=== PATIENT | female | born 1970 | race Caucasian/White ===

== ENCOUNTER 2017-07-20 20:02 | Inpatient (IN) | payer BC ==
[2017-07-20] MEDS ORDERED: NORMAL SALINE 1000 ML 1,000 ML IV ONE (20:59)
[2017-07-20 21:38] LABS: HEMATOCRIT 44.7 % (36.0-47.0); HEMOGLOBIN 14.6 g/dL (12.0-15.5); MEAN CORPUSCULAR HEMOGLOBIN 26.2 pg (27.0-33.4); MEAN CORPUSCULAR HGB CONC 32.7 g/dL (32.0-36.0); MEAN CORPUSCULAR VOLUME 80 fl (80-97); PLATELET COUNT 228 10^3/uL (150-450); RED BLOOD COUNT 5.59 10^6/uL (3.72-5.28); RED CELL DISTRIBUTION WIDTH 15.6 % (11.5-14.0); WHITE BLOOD COUNT 5.9 10^3/uL (4.0-10.5)
[2017-07-20 22:00] LABS: ALANINE AMINOTRANSFERASE 40 U/L (9-52); ALBUMIN 4.5 g/dL (3.5-5.0); ALKALINE PHOSPHATASE 109 U/L (38-126); ANION GAP 14 (5-19); ASPARTATE AMINO TRANSFERASE 30 U/L (14-36); BILIRUBIN,DIRECT 0.1 mg/dL (0.0-0.4); BILIRUBIN,TOTAL 0.3 mg/dL (0.2-1.3); BLOOD UREA NITROGEN 22 mg/dL (7-20); CALCIUM 10.8 mg/dL (8.4-10.2); CARBON DIOXIDE 22 mmol/L (22-30); CHLORIDE 104 mmol/L (98-107); GLUCOSE 94 mg/dL (75-110); LIPASE 71.1 U/L (23-300); POTASSIUM 3.9 mmol/L (3.6-5.0); SODIUM 139.6 mmol/L (137-145); TOTAL PROTEIN 7.1 g/dL (6.3-8.2)
[2017-07-20 22:03] LABS: ABSOLUTE LYMPHOCYTES# (MANUAL) 0.8 10^3/uL (0.5-4.7); ABSOLUTE MONOCYTES # (MANUAL) 0.2 10^3/uL (0.1-1.4); BAND NEUTROPHILS % (MANUAL) 4 % (3-5); BASOPHILS % (MANUAL) 0 % (0-2); EOSINOPHILS % (MANUAL) 0 % (0-6); LYMPHOCYTES % (MANUAL) 13 % (13-45); METAMYELOCYTES % (MANUAL) 2 % (0); MONOCYTES % (MANUAL) 3 % (3-13); SEGMENTED NEUTROPHILS % (MAN) 78 % (42-78); TOTAL CELLS COUNTED 100
[2017-07-20 22:05] LABS: ANISOCYTOSIS SLIGHT; BURR CELLS SLIGHT; PLATELET COMMENT ADEQUATE; PLATELET GIANT PRESENT; PLATELET LARGE PRESENT; POIKILOCYTOSIS SLIGHT; SCHISTOCYTES SLIGHT; TEAR DROP CELLS SLIGHT; TOXIC GRANULATION 2+
[2017-07-20] MEDS ORDERED: HYDROMORPHONE HCL INJ/PF 2 MG/ML AMPULE IV PRN (22:34)
[2017-07-20] MEDS ORDERED: ONDANSETRON HCL INJ/PF 4 MG/2 ML SDV IV ONE (23:24)
--- NOTE | 2017-07-20 23:58 | RADIOLOGY REPORT (SQ) ---
EXAM DESCRIPTION: CT ABD/PELVIS WITH IV ONLY CLINICAL HISTORY: 46 years Female, eval sbo COMPARISON: None. TECHNIQUE: 74 mL Isovue-370 IV contrast. Coronal and sagittal reformat. This exam was performed according to our departmental dose-optimization program, which includes automated exposure control, adjustment of the mA and/or kV according to patient size and/or use of iterative reconstruction technique. FINDINGS: 3.0 cm diameter fluid filled and stacked predominantly jejunal small bowel of the left paracentral abdomen. No significant free fluid. No free air. Innumerable cysts of the liver and bilateral kidneys with kidneys measuring up to 16 cm on the right and 19 cm on the left including exophytic cysts of the left kidney measuring 5.8 cm. Cholecystectomy clips. Inferior thorax, pancreas, spleen, adrenals, pelvic organs, lymphatics, vasculature, and musculoskeleton appear otherwise unremarkable. IMPRESSION: Small bowel ileus and/or low grade obstruction.
[2017-07-21] MEDS ORDERED: MIDAZOLAM 2 MG/2 ML INJ IV ONE (00:07)
--- NOTE | 2017-07-21 00:11 | ER Document Report ---
ED General - General Chief Complaint: Abdominal Pain Stated Complaint: BOWEL ISSUE Time Seen by Provider: 07/20/17 20:58 Notes: Patient is a 46 year old female with a past medical history of polycystic kidney and liver disease with a partial liver resection 1-1/2 years ago at [facility] with a complication of a bowel obstruction after the procedure. She reports that that bowel obstruction was managed conservatively NG tube placement and she has not had any repeat obstruction since that time. Patient states that at approximately 1 PM today she began to have a generalized, cramping, aching pain to her entire abdomen worse in the epigastrium. He notes that it got progressively much worse throughout the day, preventing her from eating the able to drive from [place] back home to [place]. She is notes that since that time she has been extremely nauseated, has had no appetite but was able to eat an apple without vomiting. She has not had a bowel movement today and believes she has not passed any flatus today. Nothing improves or worsens her symptoms. She has not seen her primary care doctor regarding today's concerns. TRAVEL OUTSIDE OF THE [place] IN LAST 30 DAYS: No - Related Data Allergies/Adverse Reactions: No Known Allergies Allergy (Verified 03/16/16 10:04) Past Medical History - General Information source: Patient - Social History Smoking Status: Former Smoker Frequency of alcohol use: None Drug Abuse: None Lives with: Spouse/Significant other Family History: CAD Patient has suicidal ideation: No Patient has homicidal ideation: No - Past Medical History Cardiac Medical History: Reports: Hx Hypertension Denies: Hx Coronary Artery Disease, Hx Heart Attack Pulmonary Medical History: Denies: Hx Asthma, Hx Bronchitis, Hx COPD, Hx Pneumonia Neurological Medical History: Denies: Hx Cerebrovascular Accident, Hx Seizures Renal/ Medical History: Denies: Hx Peritoneal Dialysis Musculoskeltal Medical History: Denies Hx Arthritis Past Surgical History: Reports: Hx Tonsillectomy - Immunizations Hx Diphtheria, Pertussis, Tetanus Vaccination: No Review of Systems - Review of Systems Notes: Constitutional: Negative for fever. HENT: Negative for sore throat. Eyes: Negative for visual changes. Cardiovascular: Negative for chest pain. Respiratory: Negative for shortness of breath. Gastrointestinal: Positive for abdominal pain and nausea Genitourinary: Negative for dysuria. Musculoskeletal: Negative for back pain. Skin: Negative for rash. Neurological: Negative for headaches, weakness or numbness. 10 point ROS negative except as marked above and in HPI. Physical Exam - Vital signs Vitals: Temp Pulse Resp BP Pulse Ox 97.6 F 80 22 H 151/96 H 100 07/20/17 20:36 07/20/17 20:36 07/20/17 20:36 07/20/17 20:36 07/20/17 20:36 Interpretation: Hypertensive Notes: PHYSICAL EXAMINATION: GENERAL: Appears uncomfortable but in no acute distress. HEAD: Atraumatic, normocephalic. EYES: Pupils equal round and reactive to light, extraocular movements intact, sclera anicteric, conjunctiva are normal. ENT: nares patent, oropharynx clear without exudates. Dry mucous membranes. NECK: Normal range of motion, supple without lymphadenopathy LUNGS: Breath sounds clear to auscultation bilaterally and equal. No wheezes rales or rhonchi. HEART: Regular rate and rhythm without murmurs ABDOMEN: Soft, diffuse tenderness to palpation without rebound or guarding. No bowel sounds are present. Tympany on percussion. EXTREMITIES: Normal range of motion, no pitting or edema. No cyanosis. NEUROLOGICAL: No focal neurological deficits. Moves all extremities spontaneously and on command. PSYCH: Normal mood, normal affect. SKIN: Warm, Dry, normal turgor, no rashes or lesions noted. Course - Re-evaluation Re-evalutation: 07/21/17 00:09 Patient presents with signs and symptoms most consistent with an acute small bowel obstruction. She has no bowel sounds on examination, tympany on exam and moderate distention of her abdomen. She also reports that the symptoms are identical to when she has had a small bowel obstruction in the past. CT abdomen pelvis does show a likely small bowel obstruction versus ileus. Labs otherwise unremarkable. NG tube will be placed with midazolam. I have contacted the surgeon television and radio repairer and he has agreed to hospitalize the patient. - Vital Signs Vital signs: Temp Pulse Resp BP Pulse Ox 97.4 F 63 16 163/103 H 100 07/21/17 01:37 07/21/17 01:37 07/21/17 01:37 07/21/17 01:37 07/21/17 01:37 - Laboratory Result Diagrams: 07/20/17 21:15 07/20/17 21:15 Laboratory results interpreted by me: 07/20/17 07/20/17 21:15 21:15 RBC 5.59 H MCH 26.2 L RDW 15.6 H Metamyelocytes % 2 H BUN 22 H Est GFR (Non-Af Amer) 59 L Calcium 10.8 H - Diagnostic Test Radiology reviewed: Reports reviewed Discharge - Discharge Clinical Impression: Small bowel obstruction, Generalized abdominal pain Condition: Fair Disposition: ADMITTED INPATIENT Admitting Provider: Surgicalist - [facility] Unit Admitted: Surgical Floor
--- NOTE | 2017-07-21 00:40 | PDOC H&P ---
History of Present Illness Admission Date/PCP: RICHMOND MORRIS MD Patient complains of: Abdominal pain History of Present Illness: BEATRICE OSPINA is a 46 year old female presented with acute onset of epigastric crampy severe abdominal pain along with nausea that began earlier today. Since she has been in the emergency department she has had improvement of her symptoms currently she only has some mild abdominal discomfort. Her nausea has subsided. She has had no emesis today. She has not had a bowel movement today she had a normal bowel movement yesterday. Uncertain whether she has been passing any gas. She does feel distended. Patient has a history of polycystic kidney and liver disease. She has had a liver cysts resection via open technique couple of years ago. She apparently had a bowel obstruction after this procedure that took several days to resolve with conservative measures. Patient states that her current symptoms are similar to that time although she had emesis at that time. She has had no other abdominal surgeries. Past Medical History Cardiac Medical History: Reports: Hypertension Denies: Coronary Artery Disease, Myocardial Infarction Pulmonary Medical History: Denies: Asthma, Bronchitis, Chronic Obstructive Pulmonary Disease (COPD), Pneumonia Neurological Medical History: Denies: Seizures GI Medical History: Reports: Other - Polycystic liver and kidney disease. Musculoskeltal Medical History: Denies: Arthritis Hematology: Denies: Anemia Past Surgical History Past Surgical History: Reports: Tonsillectomy, Other - Resection of the liver cysts Social History Smoking Status: Former Smoker Frequency of Alcohol Use: Occasional Hx Recreational Drug Use: No Hx Prescription Drug Abuse: No Family History Family History: CAD Parental Family History Reviewed: No Children Family History Reviewed: No Sibling(s) Family History Reviewed.: No Medication/Allergy Home Medications: Dextroamphetamine/Amphetamine [Adderall 10 mg Tablet] 10 mg PO DAILY PRN Metoprolol Succinate [Toprol Xl 50 mg Tab.sr] 50 mg PO DAILY 03/08/14 Fingolimod HCl [Gilenya] 0.5 mg PO DAILY 03/16/16 Venlafaxine HCl ER [Effexor Xr 75 mg Cap.sr] 75 mg PO DAILY 03/16/16 Allergies/Adverse Reactions: No Known Allergies Allergy (Verified 03/16/16 10:04) Physical Exam Vital Signs: Temp Pulse Resp BP Pulse Ox 97.6 F 80 22 H 151/96 H 100 07/20/17 20:36 07/20/17 20:36 07/20/17 20:36 07/20/17 20:36 07/20/17 20:36 General appearance: PRESENT: no acute distress, cooperative Eye exam: PRESENT: conjunctiva pink Neck exam: PRESENT: other - Supple with no masses Respiratory exam: PRESENT: clear to auscultation marcel Cardiovascular exam: PRESENT: RRR GI/Abdominal exam: PRESENT: other - Soft, mildly distended, very mild epigastric abdominal tenderness with no peritoneal signs. Positive bowel sounds. Extremities exam: PRESENT: other - No swelling Neurological exam: PRESENT: alert, awake Psychiatric exam: PRESENT: appropriate affect Skin exam: PRESENT: warm Results Laboratory Results: 07/20/17 21:15 07/20/17 21:15 07/20/17 07/20/17 21:15 21:15 WBC 5.9 RBC 5.59 H Hgb 14.6 Hct 44.7 MCV 80 MCH 26.2 L MCHC 32.7 RDW 15.6 H Plt Count 228 Seg Neutrophils % Not Reportable Lymphocytes % Not Reportable Monocytes % Not Reportable Eosinophils % Not Reportable Basophils % Not Reportable Absolute Neutrophils Not Reportable Absolute Lymphocytes Not Reportable Absolute Monocytes Not Reportable Absolute Eosinophils Not Reportable Absolute Basophils Not Reportable Sodium 139.6 Potassium 3.9 Chloride 104 Carbon Dioxide 22 Anion Gap 14 BUN 22 H Creatinine 1.00 Est GFR ( Amer) > 60 Est GFR (Non-Af Amer) 59 L Glucose 94 Calcium 10.8 H Total Bilirubin 0.3 AST 30 ALT 40 Alkaline Phosphatase 109 Total Protein 7.1 Albumin 4.5 Lipase 71.1 Impressions: Abdomen/Pelvis CT 07/20/17 20:58 IMPRESSION: Small bowel ileus and/or low grade obstruction. Assessment & Plan - Diagnosis (1) Small bowel obstruction Is this a current diagnosis for this admission?: Yes Plan: Possible partial small bowel obstruction. Her abdomen is very soft with minimal tenderness and her symptoms have improved since arrival to the emergency department. Therefore will manage her conservatively. Will admit, IV fluids, hold off on NG tube for now in light of no emesis and no severe gastric distention on CT. Encourage activity. Repeat abdominal films tomorrow..
[2017-07-21] MEDS: HYDROMORPHONE HCL INJ/PF 2 MG/ML AMPULE IV PRN ×10 (01:11→23:40)
[2017-07-21 01:43] LABS: APPEARANCE,URINE SLIGHTLY-CLOUDY; BILIRUBIN,URINE NEGATIVE (NEGATIVE); COLOR,URINE STRAW; GLUCOSE, URINE NEGATIVE (NEGATIVE); KETONES,URINE NEGATIVE (NEGATIVE); LEUKOCYTE ESTERASE,URINE NEGATIVE (NEGATIVE); NITRITE,URINE NEGATIVE (NEGATIVE); PROTEIN,URINE NEGATIVE (NEGATIVE); URINE SPECIFIC GRAVITY 1.006; UROBILINOGEN,URINE NEGATIVE mg/dL (<2.0)
[2017-07-21] MEDS: NORMAL SALINE 1000 ML 1,000 ML IV PRN ×2 (02:03→14:41)
[2017-07-21] MEDS ORDERED: METOPROLOL SUCCINATE 50 MG TAB.SR.24H PO ONE (04:30)
[2017-07-21] MEDS: ONDANSETRON 4 MG TAB.RAPDIS PO PRN ×5 (04:59→23:41)
[2017-07-21] MEDS ORDERED: ENALAPRILAT DIHYDRATE INJ/PF 1.25 MG/1 ML SDV IV ONE (07:52)
[2017-07-21] MEDS ORDERED: ENALAPRILAT DIHYDRATE INJ/PF 1.25 MG/1 ML SDV IV PRN (08:28)
--- NOTE | 2017-07-21 08:50 | PDOC PROGRESS REPORT ---
Subjective Progress Note for:: 07/21/17 Subjective:: Complaint of worsening pain. She was nauseated and has had 2 episodes of emesis. Reason For Visit: PARTIAL SMALL BOWEL OBSTRUCTION Physical Exam Vital Signs: Temp Pulse Resp BP Pulse Ox 97.5 F 60 15 185/97 H 100 07/21/17 03:48 07/21/17 03:48 07/21/17 03:48 07/21/17 03:48 07/21/17 03:48 Intake & Output 07/20/17 07/21/17 07/22/17 06:59 06:59 06:59 Weight 71.9 kg General appearance: PRESENT: other - Awake, alert, oriented. She appears uncomfortable Respiratory exam: PRESENT: other - Clear bilaterally. No wheezing Cardiovascular exam: PRESENT: other - Regular rate. GI/Abdominal exam: PRESENT: other - Soft, mild diffuse tenderness without guarding or peritoneal signs. Bowel sounds diminished. No high-pitched bowel sounds. Results Impressions: Abdomen/Pelvis CT 07/20/17 20:58 IMPRESSION: Small bowel ileus and/or low grade obstruction. Assessment & Plan - Diagnosis (1) Small bowel obstruction Is this a current diagnosis for this admission?: Yes - Plan Summary Plan Summary: 46-year-old female with polycystic disease admitted with partial small bowel obstruction. CT scan does not show a clear transition point. There is no evidence of internal hernia on the exam. I have asked the nurses to place an NG tube. At the time of placement of the NG tube she had emesis of an additional 200 cc of bilious fluid. I will order repeat labs for this morning. Continue NG tube decompression. Reassess later this morning.
--- NOTE | 2017-07-21 10:05 | RADIOLOGY REPORT (SQ) ---
EXAM DESCRIPTION: ABDOMEN 2 VIEWS COMPLETED DATE/TIME: 07/21/2017 9:52 am REASON FOR STUDY: psbo/ NG Placement COMPARISON: None. NUMBER OF VIEWS: Two views. TECHNIQUE: Supine and erect/decubitus radiographic images of the abdomen acquired. LIMITATIONS: None. FINDINGS: FREE AIR: None. No abnormal gas collections. LUNG BASES: Clear. BOWEL GAS PATTERN: Gas fluid levels within nondilated loops of small bowel in the left lower quadrant . CALCIFICATIONS: No suspicious calcifications. SOFT TISSUES: No gross mass or suggestion of organomegaly. HARDWARE: Clips right upper quadrant. BONES: No acute fracture. No worrisome bone lesions. OTHER: NG tube in the stomach. Residual contrast in the urinary tract. IMPRESSION: Mild ileus status post NG tube placement. TECHNICAL DOCUMENTATION: JOB ID: [id number] [employer]- All Rights Reserved
[2017-07-21 10:52] LABS: HEMOGLOBIN 16.1 g/dL (12.0-15.5); MEAN CORPUSCULAR HEMOGLOBIN 26.4 pg (27.0-33.4); MEAN CORPUSCULAR HGB CONC 32.8 g/dL (32.0-36.0); MEAN CORPUSCULAR VOLUME 80 fl (80-97); PLATELET COUNT 206 10^3/uL (150-450); RED CELL DISTRIBUTION WIDTH 16.5 % (11.5-14.0)
[2017-07-21 11:11] LABS: ALANINE AMINOTRANSFERASE 43 U/L (9-52); ALBUMIN 4.2 g/dL (3.5-5.0); ALKALINE PHOSPHATASE 105 U/L (38-126); ANION GAP 12 (5-19); ASPARTATE AMINO TRANSFERASE 36 U/L (14-36); BILIRUBIN,DIRECT 0.4 mg/dL (0.0-0.4); BILIRUBIN,TOTAL 0.5 mg/dL (0.2-1.3); BLOOD UREA NITROGEN 22 mg/dL (7-20); CALCIUM 10.4 mg/dL (8.4-10.2); CARBON DIOXIDE 19 mmol/L (22-30); CHLORIDE 110 mmol/L (98-107); GLUCOSE 145 mg/dL (75-110); POTASSIUM 4.6 mmol/L (3.6-5.0); SODIUM 141.1 mmol/L (137-145); TOTAL PROTEIN 7.4 g/dL (6.3-8.2)
[2017-07-21 11:16] LABS: ABSOLUTE MONOCYTES # (MANUAL) 0.3 10^3/uL (0.1-1.4); ABSOLUTE NEUTROPHILS# (MANUAL) 9.7 10^3/uL (1.7-8.2); ANISOCYTOSIS 1+; BASOPHILS % (MANUAL) 0 % (0-2); EOSINOPHILS % (MANUAL) 0 % (0-6); LYMPHOCYTES % (MANUAL) 0 % (13-45); MONOCYTES % (MANUAL) 3 % (3-13); PLATELET COMMENT ADEQUATE; POLYCHROMASIA SLIGHT; SEGMENTED NEUTROPHILS % (MAN) 97 % (42-78); TOTAL CELLS COUNTED 100; TOXIC GRANULATION SLIGHT
[2017-07-21] MEDS ORDERED: NORMAL SALINE 500 ML IV ONE ×2 (13:00→18:45)
[2017-07-21 15:30] LABS: HEMATOCRIT 51.4 % (36.0-47.0); HEMOGLOBIN 16.6 g/dL (12.0-15.5); MEAN CORPUSCULAR HEMOGLOBIN 26.4 pg (27.0-33.4); MEAN CORPUSCULAR HGB CONC 32.3 g/dL (32.0-36.0); MEAN CORPUSCULAR VOLUME 82 fl (80-97); PLATELET COUNT 217 10^3/uL (150-450); RED CELL DISTRIBUTION WIDTH 16.1 % (11.5-14.0); WHITE BLOOD COUNT 10.2 10^3/uL (4.0-10.5)
[2017-07-21 15:47] LABS: ALANINE AMINOTRANSFERASE 38 U/L (9-52); ALBUMIN 4.1 g/dL (3.5-5.0); ALKALINE PHOSPHATASE 105 U/L (38-126); ANION GAP 12 (5-19); ASPARTATE AMINO TRANSFERASE 28 U/L (14-36); BILIRUBIN,TOTAL 0.3 mg/dL (0.2-1.3); BLOOD UREA NITROGEN 22 mg/dL (7-20); CALCIUM 9.7 mg/dL (8.4-10.2); CARBON DIOXIDE 21 mmol/L (22-30); CHLORIDE 110 mmol/L (98-107); GLUCOSE 121 mg/dL (75-110); POTASSIUM 4.5 mmol/L (3.6-5.0); TOTAL PROTEIN 6.6 g/dL (6.3-8.2)
[2017-07-21 15:50] LABS: ABSOLUTE LYMPHOCYTES# (MANUAL) 0.3 10^3/uL (0.5-4.7); ABSOLUTE MONOCYTES # (MANUAL) 0.6 10^3/uL (0.1-1.4); ABSOLUTE NEUTROPHILS# (MANUAL) 9.3 10^3/uL (1.7-8.2); BASOPHILS % (MANUAL) 0 % (0-2); EOSINOPHILS % (MANUAL) 0 % (0-6); LYMPHOCYTES % (MANUAL) 2 % (13-45); MONOCYTES % (MANUAL) 6 % (3-13); SEGMENTED NEUTROPHILS % (MAN) 91 % (42-78); TOTAL CELLS COUNTED 100
[2017-07-21 15:51] LABS: ANISOCYTOSIS 1+; OVALOCYTES SLIGHT; POIKILOCYTOSIS SLIGHT
[2017-07-21 15:52] LABS: PLATELET COMMENT ADEQUATE
[2017-07-21] MEDS: METOPROLOL SUCCINATE 50 MG TAB.SR.24H PO SCH (17:35)
[2017-07-21] MEDS ORDERED: (PENDING PHARMACY ID) (Fingolimod Hcl [Gilenya] 0.5 MG) PO SCH (18:00)
[2017-07-22] MEDS: ONDANSETRON 4 MG TAB.RAPDIS PO PRN ×3 (03:06→11:03)
[2017-07-22] MEDS: HYDROMORPHONE HCL INJ/PF 2 MG/ML AMPULE IV PRN ×5 (03:06→22:42)
[2017-07-22 07:41] LABS: HEMATOCRIT 49.5 % (36.0-47.0); HEMOGLOBIN 15.9 g/dL (12.0-15.5); MEAN CORPUSCULAR HEMOGLOBIN 26.2 pg (27.0-33.4); MEAN CORPUSCULAR HGB CONC 32.1 g/dL (32.0-36.0); MEAN CORPUSCULAR VOLUME 82 fl (80-97); PLATELET COUNT 219 10^3/uL (150-450); RED BLOOD COUNT 6.07 10^6/uL (3.72-5.28); RED CELL DISTRIBUTION WIDTH 16.4 % (11.5-14.0); WHITE BLOOD COUNT 7.6 10^3/uL (4.0-10.5)
[2017-07-22 07:56] LABS: ANION GAP 8 (5-19); BLOOD UREA NITROGEN 26 mg/dL (7-20); CALCIUM 9.2 mg/dL (8.4-10.2); CARBON DIOXIDE 20 mmol/L (22-30); CHLORIDE 115 mmol/L (98-107); GLUCOSE 102 mg/dL (75-110); POTASSIUM 4.7 mmol/L (3.6-5.0); SODIUM 142.9 mmol/L (137-145)
[2017-07-22] MEDS ORDERED: VENLAFAXINE HCL 75 MG CAP.SR.24H PO SCH (10:00)
--- NOTE | 2017-07-22 12:02 | PDOC PROGRESS REPORT ---
Subjective Progress Note for:: 07/22/17 Subjective:: No c/o, emesis this AM after oral contrast Reason For Visit: PARTIAL SMALL BOWEL OBSTRUCTION Physical Exam Vital Signs: Temp Pulse Resp BP Pulse Ox 97.9 F 77 17 140/91 H 99 07/22/17 08:11 07/22/17 08:11 07/22/17 08:11 07/22/17 08:11 07/22/17 08:11 Intake & Output 07/21/17 07/22/17 07/23/17 06:59 06:59 06:59 Intake Total 2121 Output Total 700 Balance 1421 Weight 71.9 kg General appearance: PRESENT: no acute distress Respiratory exam: PRESENT: clear to auscultation marcel Cardiovascular exam: PRESENT: RRR GI/Abdominal exam: PRESENT: normal bowel sounds, soft Results Laboratory Results: 07/22/17 06:43 07/22/17 06:43 07/21/17 07/21/17 07/21/17 15:15 15:15 15:15 WBC 10.2 RBC 6.30 H Hgb 16.6 H Hct 51.4 H MCV 82 MCH 26.4 L MCHC 32.3 RDW 16.1 H Plt Count 217 Seg Neutrophils % Not Reportable Lymphocytes % Not Reportable Monocytes % Not Reportable Eosinophils % Not Reportable Basophils % Not Reportable Absolute Neutrophils Not Reportable Absolute Lymphocytes Not Reportable Absolute Monocytes Not Reportable Absolute Eosinophils Not Reportable Absolute Basophils Not Reportable Sodium 143.0 Potassium 4.5 Chloride 110 H Carbon Dioxide 21 L Anion Gap 12 BUN 22 H Creatinine 0.85 Est GFR ( Amer) > 60 Est GFR (Non-Af Amer) > 60 Glucose 121 H Lactic Acid 0.9 Calcium 9.7 Total Bilirubin 0.3 AST 28 ALT 38 Alkaline Phosphatase 105 Total Protein 6.6 Albumin 4.1 07/22/17 07/22/17 06:43 06:43 WBC 7.6 RBC 6.07 H Hgb 15.9 H Hct 49.5 H MCV 82 MCH 26.2 L MCHC 32.1 RDW 16.4 H Plt Count 219 Seg Neutrophils % Lymphocytes % Monocytes % Eosinophils % Basophils % Absolute Neutrophils Absolute Lymphocytes Absolute Monocytes Absolute Eosinophils Absolute Basophils Sodium 142.9 Potassium 4.7 Chloride 115 H Carbon Dioxide 20 L Anion Gap 8 BUN 26 H Creatinine 0.87 Est GFR ( Amer) > 60 Est GFR (Non-Af Amer) > 60 Glucose 102 Lactic Acid Calcium 9.2 Total Bilirubin AST ALT Alkaline Phosphatase Total Protein Albumin Impressions: Abdomen X-Ray 07/21/17 07:00 IMPRESSION: Mild ileus status post NG tube placement. Assessment & Plan - Diagnosis (1) Small bowel obstruction Is this a current diagnosis for this admission?: Yes - Plan Summary Plan Summary: A/ Small bowel obstruction conformed on CT scan A/P today with oral and IV contrast Bladder filled with urine Gas in colon: above picture is not consistent with complete SBO About 700 mL NGT aspirate and emesis during past 24 hrs PE shows soft abdomen with normal BS Blood work WNL P/ Patient wishes to hold off surgery and possibly to be transferred to [place] where original abdominal cyst debulking surgery was done NO urgency to operate on this patient as abdomen is soft and air is in the colon at this time and blood work is WNL Options given: conservative management vs. operative intervention vs. transfer to [place] Insert Walden Dulcolax suppository to stimulate the intestine
--- NOTE | 2017-07-22 12:04 | RADIOLOGY REPORT (SQ) ---
EXAM DESCRIPTION: CT ABD/PELVIS WITH IV ORAL COMPLETED DATE/TIME: 07/22/2017 10:34 am REASON FOR STUDY: obstruction. oral contrast 3 hrs prior to scan COMPARISON: None. TECHNIQUE: CT scan of the abdomen and pelvis performed using helical scanning technique with dynamic intravenous contrast injection. No oral contrast. Images reviewed with lung, soft tissue, and bone windows. Reconstructed coronal and sagittal MPR images reviewed. Delayed images for evaluation of the urinary system also acquired. All images stored on PACS. All CT scanners at this facility use dose modulation, iterative reconstruction, and/or weight based d osing when appropriate to reduce radiation dose to as low as reasonably achievable (ALARA). [facility]: Dose Right [facility]: CareDose [facility]: Dose Right [facility]: Teradose 4D [facility]: Centrix CONTRAST TYPE AND DOSE: contrast/concentration: Isovue 370.00 mg/ml; Total Contrast Delivered: 78.0 ml; Total Saline Delivered: 67.0 ml RENAL FUNCTION: Creatinine 0.85 RADIATION DOSE: CT Rad equipment meets quality standard of care and radiation dose reduction techniq ues were employed. CTDIvol: 6.8 - 9.9 mGy. DLP: 906 mGy-cm.. LIMITATIONS: None. FINDINGS: LOWER CHEST: There is bibasilar atelectasis. Small pleural effusions. LIVER: Prominent right lobe of the liver measuring 24.5 cm in length. Multiple hepatic cyst compati ble with changes secondary to adult ull polycystic kidney disease. Surgical mali are noted along the right liver the liver consistent with postsurgical change from cyst resection. SPLEEN: No abnormality seen. PANCREAS: No abnormality seen. GALLBLADDER: Not seen. Surgical clips adjacent to common bile duct suggesting postcholecystectomy ch jenna. ADRENAL GLANDS: No significant abnormality. RIGHT KIDNEY AND URETER: Enlarged multi cystic right kidney consistent with polycystic kidney disease . Few calcifications are noted in the lower pole of the right kidney. LEFT KIDNEY AND URETER: Enlarged left kidney containing multiple cysts consistent with adult polycyst ic kidney disease. Calcifications are noted in the upper pole of the left kidney. AORTA AND VESSELS: No evidence of abdominal aneurysm. Minimal atherosclerotic change infrarenal abdo sheyla aorta. Atherosclerotic change iliac arteries. RETROPERITONEUM: No retroperitoneal adenopathy. BOWEL AND PERITONEAL CAVITY: There is evidence of a decompressed colon. Proximal to the cecum there are angulated and narrowed loops of small bowel noted with dilatation of bowel proximal to this level . The possibility of a distal small bowel obstruction in the right lower quadrant must be considered (image number 56/101 series 3 axial scans) and (image number 29/69coronal scans ) . NG tube noted p assing from esophagus into stomach. Minimal contrast noted within stomach. APPENDIX: Nonvisualized. . PELVIS: There are changes consistent with tampon within the vaginal canal. No abnormality of the marcio maryan. ABDOMINAL WALL: No masses. No hernias. BONES: No significant or acute findings. OTHER: Changes consistent with abdominal and pelvic ascites. IMPRESSION: 1. Findings consistent with distal small bowel obstruction. 2. Adult polycystic kidne y disease. COMMENT: Report was given to Dr. Peralta at 1140 hours 07/22/2017. TECHNICAL DOCUMENTATION: JOB ID: [id number] Quality ID # [id number]: Final reports with documentation of one or more dose reduction techniques (e.g., Au tomated exposure control, adjustment of the mA and/or kV according to patient size, use of iterative reconstruction technique) 2010 [employer]- All Rights Reserved
[2017-07-22] MEDS: BISACODYL 10 MG SUPP.RECT PR SCH ×2 (12:42→16:40)
[2017-07-22] MEDS: NORMAL SALINE 1000 ML 1,000 ML IV PRN (15:24)
[2017-07-22] MEDS: ONDANSETRON HCL INJ/PF 4 MG/2 ML SDV IV PRN ×2 (17:49→22:42)
[2017-07-22] MEDS: METOPROLOL SUCCINATE 50 MG TAB.SR.24H PO SCH (18:16)
[2017-07-23] MEDS: HYDROMORPHONE HCL INJ/PF 2 MG/ML AMPULE IV PRN ×2 (02:21→05:17)
[2017-07-23] MEDS ORDERED: ENALAPRILAT DIHYDRATE INJ/PF 1.25 MG/1 ML SDV IV ONE (02:29)
[2017-07-23] MEDS: ONDANSETRON HCL INJ/PF 4 MG/2 ML SDV IV PRN (05:27)
[2017-07-23 06:43] LABS: HEMATOCRIT 45.2 % (36.0-47.0); HEMOGLOBIN 14.6 g/dL (12.0-15.5); MEAN CORPUSCULAR HEMOGLOBIN 26.3 pg (27.0-33.4); MEAN CORPUSCULAR HGB CONC 32.3 g/dL (32.0-36.0); MEAN CORPUSCULAR VOLUME 81 fl (80-97); PLATELET COUNT 181 10^3/uL (150-450); RED BLOOD COUNT 5.55 10^6/uL (3.72-5.28); RED CELL DISTRIBUTION WIDTH 16.3 % (11.5-14.0); WHITE BLOOD COUNT 6.5 10^3/uL (4.0-10.5)
[2017-07-23 07:02] LABS: ANION GAP 7 (5-19); BLOOD UREA NITROGEN 23 mg/dL (7-20); CALCIUM 8.9 mg/dL (8.4-10.2); CARBON DIOXIDE 24 mmol/L (22-30); CHLORIDE 115 mmol/L (98-107); GLUCOSE 93 mg/dL (75-110); POTASSIUM 4.2 mmol/L (3.6-5.0); SODIUM 145.6 mmol/L (137-145)
[2017-07-23 07:10] LABS: ABSOLUTE LYMPHOCYTES# (MANUAL) 0.3 10^3/uL (0.5-4.7); ABSOLUTE MONOCYTES # (MANUAL) 0.8 10^3/uL (0.1-1.4); ABSOLUTE NEUTROPHILS# (MANUAL) 5.5 10^3/uL (1.7-8.2); BAND NEUTROPHILS % (MANUAL) 2 % (3-5); BASOPHILS % (MANUAL) 0 % (0-2); EOSINOPHILS % (MANUAL) 0 % (0-6); LYMPHOCYTES % (MANUAL) 3 % (13-45); MONOCYTES % (MANUAL) 12 % (3-13); SEGMENTED NEUTROPHILS % (MAN) 82 % (42-78); TOTAL CELLS COUNTED 100
[2017-07-23 07:11] LABS: PLATELET COMMENT ADEQUATE
[2017-07-23 07:14] LABS: RBC MORPHOLOGY COMMENT NORMO-CYTIC/CHROMIC
--- NOTE | 2017-07-23 09:01 | RADIOLOGY REPORT (SQ) ---
EXAM DESCRIPTION: ABDOMEN 2 VIEWS COMPLETED DATE/TIME: 07/23/2017 8:33 am REASON FOR STUDY: SBO follow up COMPARISON: 07/21/2017 NUMBER OF VIEWS: Two views. TECHNIQUE: Supine and erect/decubitus radiographic images of the abdomen acquired. LIMITATIONS: None. FINDINGS: FREE AIR: None. No abnormal gas collections. LUNG BASES: Clear. BOWEL GAS PATTERN: Gas fluid levels within small loop of mildly dilated small bowel in the lower abdo men near the midline. Relative paucity of bowel gas consistent with fluid filled bowel. There is ga s in the descending colon. CALCIFICATIONS: No suspicious calcifications. SOFT TISSUES: No gross mass or suggestion of organomegaly. HARDWARE: Clips right upper quadrant. Walden catheter. BONES: No acute fracture. No worrisome bone lesions. OTHER: Unchanged position of NG tube. IMPRESSION: No progression. Less small bowel distention. TECHNICAL DOCUMENTATION: JOB ID: [id number] [employer]- All Rights Reserved
[2017-07-23] MEDS ORDERED: 1/2 NORMAL SALINE 1,000 ML IV PRN (12:52)
[2017-07-23] MEDS ORDERED: DEXTROSE 40% GEL 15 GM TUBE PO PRN ×2 (12:54)
[2017-07-23] MEDS ORDERED: GLUCAGON,HUMAN RECOMB 1 MG INJ SUBCUT PRN (12:54)
[2017-07-23] MEDS ORDERED: DEXTROSE 50%-WATER 25 GM/50 ML DISP.SYRIN IV PRN ×2 (12:54)
--- NOTE | 2017-07-23 13:14 | PDOC PROGRESS REPORT ---
Subjective Progress Note for:: 07/23/17 Subjective:: Patient comfortable, denies any stools or flatus; feels thirsty Reason For Visit: SMALL BOWEL OBSTRUCTION Physical Exam Vital Signs: Temp Pulse Resp BP Pulse Ox 98.5 F 82 18 152/85 H 99 07/23/17 07:32 07/23/17 07:32 07/23/17 07:32 07/23/17 07:32 07/23/17 07:32 Intake & Output 07/22/17 07/23/17 07/24/17 06:59 06:59 06:59 Output Total 650 Balance -650 Weight 74.3 kg General appearance: PRESENT: mild distress Respiratory exam: PRESENT: clear to auscultation marcel Cardiovascular exam: PRESENT: RRR GI/Abdominal exam: PRESENT: hypoactive bowel sounds, soft Results Laboratory Results: 07/23/17 06:26 07/23/17 06:26 07/23/17 07/23/17 06:26 06:26 WBC 6.5 RBC 5.55 H Hgb 14.6 Hct 45.2 MCV 81 MCH 26.3 L MCHC 32.3 RDW 16.3 H Plt Count 181 Seg Neutrophils % Not Reportable Lymphocytes % Not Reportable Monocytes % Not Reportable Eosinophils % Not Reportable Basophils % Not Reportable Absolute Neutrophils Not Reportable Absolute Lymphocytes Not Reportable Absolute Monocytes Not Reportable Absolute Eosinophils Not Reportable Absolute Basophils Not Reportable Sodium 145.6 H Potassium 4.2 Chloride 115 H Carbon Dioxide 24 Anion Gap 7 BUN 23 H Creatinine 0.77 Est GFR ( Amer) > 60 Est GFR (Non-Af Amer) > 60 Glucose 93 Calcium 8.9 Impressions: Abdomen/Pelvis CT 07/22/17 08:00 IMPRESSION: 1. Findings consistent with distal small bowel obstruction. 2. Adult polycystic kidney disease. Abdomen X-Ray 07/23/17 12:04 IMPRESSION: No progression. Less small bowel distention. Assessment & Plan - Diagnosis (1) Small bowel obstruction Is this a current diagnosis for this admission?: Yes - Plan Summary Plan Summary: A/ HD#4 with complete small bowel obstruction Still moderately elevated NGT output (400 mL past shift) Moderate UO Patient thirsty; no flatus since admission BMP shows elevated Na and Cl as per maintenance IVF (NS) Abdomen soft Abdominal btructiive series shows a gasless colon with distended loops of small bowel consistent with complete mechanical small bowel obstruciton P/ O.5% NS IV 1L bolus Change IVF maintenance to D5 0.5% NS with 20 mEq KCl at 150 mL/hr The gasless colon and the lack of flatus after almost 5 days, indicate a complete SBO requiring an urgent operation sooner rather than later. This operation should be done to avoid the possibility of either a spontaneous small bowel perforation or a small bowel necrosis with secondary intraabdominal catastrophy. This possibility has been related to the patient, she voices understanding of the risks; however, she declines the offer to undergo surgery at this time.
[2017-07-23] MEDS: POTASSI CL 20 MEQ/D5-1/2NS 1L 1,000 ML IV PRN (15:33)
[2017-07-23] MEDS: METOPROLOL SUCCINATE 50 MG TAB.SR.24H PO SCH (17:01)
[2017-07-23] MEDS ORDERED: MAGNESIUM CITRATE 296 ML BOTTLE PO ONE (17:30)
[2017-07-24] MEDS: POTASSI CL 20 MEQ/D5-1/2NS 1L 1,000 ML IV PRN ×2 (01:05→18:07)
[2017-07-24] MEDS: HYDROMORPHONE HCL INJ/PF 2 MG/ML AMPULE IV PRN (06:31)
[2017-07-24] MEDS: MAG HYDROX/AL HYDROX/SIMETH SUSP 30 ML UDCUP PO PRN ×2 (07:25→18:17)
[2017-07-24 07:29] LABS: ABSOLUTE LYMPHOCYTES (AUTO) 0.3 10^3/uL (0.5-4.7); ABSOLUTE MONOCYTES (AUTO) 0.6 10^3/uL (0.1-1.4); ABSOLUTE NEUT (AUTO) 4.6 10^3/uL (1.7-8.2); BASOPHILS % (AUTO) 0.1 % (0-2); HEMATOCRIT 37.1 % (36.0-47.0); LYMPHOCYTES % (AUTO) 5.1 % (13-45); MEAN CORPUSCULAR HEMOGLOBIN 26.3 pg (27.0-33.4); MEAN CORPUSCULAR HGB CONC 32.7 g/dL (32.0-36.0); MEAN CORPUSCULAR VOLUME 80 fl (80-97); PLATELET COUNT 170 10^3/uL (150-450); RED BLOOD COUNT 4.61 10^6/uL (3.72-5.28); SEGMENTED NEUTROPHILS % (AUTO) 83.8 % (42-78); TOTAL CELLS COUNTED % (AUTO) 100 %; WHITE BLOOD COUNT 5.5 10^3/uL (4.0-10.5)
[2017-07-24] MEDS ORDERED: ONDANSETRON 4 MG TAB.RAPDIS PO PRN (07:30)
[2017-07-24 07:47] LABS: BLOOD UREA NITROGEN 15 mg/dL (7-20); CALCIUM 8.7 mg/dL (8.4-10.2); CARBON DIOXIDE 26 mmol/L (22-30); CHLORIDE 109 mmol/L (98-107); GLUCOSE 113 mg/dL (75-110); POTASSIUM 3.7 mmol/L (3.6-5.0)
[2017-07-24 07:57] LABS: ANION GAP 5 (5-19); SODIUM 139.8 mmol/L (137-145)
[2017-07-24 08:04] LABS: HEMOGLOBIN 12.1 g/dL (12.0-15.5)
--- NOTE | 2017-07-24 09:19 | RADIOLOGY REPORT (SQ) ---
EXAM DESCRIPTION: ABDOMEN 2 VIEWS COMPLETED DATE/TIME: 07/24/2017 8:52 am REASON FOR STUDY: SBO follow up COMPARISON: 07/23/2017 NUMBER OF VIEWS: Two views. TECHNIQUE: Supine and erect/decubitus radiographic images of the abdomen acquired. LIMITATIONS: None. FINDINGS: FREE AIR: None. No abnormal gas collections. LUNG BASES: Clear. BOWEL GAS PATTERN: Multiple mildly dilated loops of small bowel with associated air-fluid levels. So me gas is seen within the colon which appears nondistended. Findings are consistent with worsening p artial bowel obstruction. CALCIFICATIONS: No suspicious calcifications. SOFT TISSUES: No gross mass or suggestion of organomegaly. HARDWARE: Multiple surgical clips in the upper abdomen. BONES: No acute fracture. No worrisome bone lesions. OTHER: No other significant finding. IMPRESSION: Worsening in the abdominal gas pattern with findings consistent with partial small bowel obstruction. TECHNICAL DOCUMENTATION: JOB ID: [id number] [employer]- All Rights Reserved
[2017-07-24] MEDS ORDERED: ACETAMINOPHEN 325 MG TABLET PO PRN (10:08)
--- NOTE | 2017-07-24 11:02 | PDOC PROGRESS REPORT ---
Subjective Progress Note for:: 07/24/17 Reason For Visit: SMALL BOWEL OBSTRUCTION Patient is feeling better. Tolerating a full liquid diet, having flatus and liquid stool; no p.o. pain medication; desires Tylenol for headache. Physical Exam Vital Signs: Temp Pulse Resp BP Pulse Ox 97.9 F 69 18 115/76 100 07/24/17 08:10 07/24/17 08:10 07/24/17 08:10 07/24/17 08:10 07/24/17 08:10 Intake & Output 07/23/17 07/24/17 07/25/17 06:59 06:59 06:59 Intake Total 1800 1200 Output Total 3750 Balance -1950 1200 Weight 74.3 kg 76.8 kg General appearance: PRESENT: no acute distress GI/Abdominal exam: PRESENT: other - Well-healed chevron incision consistent previous surgery; abdomen is completely benign. Results Laboratory Results: 07/24/17 06:55 07/24/17 06:55 07/24/17 07/24/17 06:55 06:55 WBC 5.5 RBC 4.61 Hgb 12.1 D Hct 37.1 MCV 80 MCH 26.3 L MCHC 32.7 RDW 16.0 H Plt Count 170 Seg Neutrophils % 83.8 H Lymphocytes % 5.1 L Monocytes % 11.0 Eosinophils % 0.0 Basophils % 0.1 Absolute Neutrophils 4.6 Absolute Lymphocytes 0.3 L Absolute Monocytes 0.6 Absolute Eosinophils 0.0 Absolute Basophils 0.0 Sodium 139.8 Potassium 3.7 Chloride 109 H Carbon Dioxide 26 Anion Gap 5 BUN 15 Creatinine 0.64 Est GFR ( Amer) > 60 Est GFR (Non-Af Amer) > 60 Glucose 113 H Calcium 8.7 Impressions: Abdomen/Pelvis CT 07/22/17 08:00 IMPRESSION: 1. Findings consistent with distal small bowel obstruction. 2. Adult polycystic kidney disease. Abdomen X-Ray 07/24/17 00:00 IMPRESSION: Worsening in the abdominal gas pattern with findings consistent with partial small bowel obstruction. Assessment & Plan - Diagnosis (1) Small bowel obstruction Is this a current diagnosis for this admission?: Yes Plan: Clinically and radiographically improved, as well as stabilization of serologic parameters tolerating a diet Recommendations: 1. Advance diet to regular; saline lock 2. Anticipate discharge home later today or tomorrow.
[2017-07-24] MEDS: METOPROLOL SUCCINATE 50 MG TAB.SR.24H PO SCH (18:07)
[2017-07-24 20:40] VITALS: BP 142/70
--- NOTE | 2017-07-27 13:04 | DISCHARGE SUMMARY E ---
Discharge Summary NAME: BEATRICE OSPINA : 1970 AGE: 46Y ADMITTED: 07/22/2017 DISCHARGED: 07/24/2017 SUMMARY OF HOSPITALIZATION: The patient is a 46-year-old female who was admitted to the surgicalist service for partial small bowel obstruction. Please see admission history and physical document. The patient was admitted to the surgicalist service, where she was kept n.p.o., on IV fluids. No nasogastric tube was required. Over the ensuing 48 hours, the patient's clinical condition improved and by the third hospital day, she was tolerating a diet, passing gas, having bowel function, and was felt to be ready for discharge home. FINAL DIAGNOSIS: 1. Partial small bowel obstruction, resolved. 2. History of surgery for polycystic kidney disease, remote. DISPOSITION: Patient to be discharged home in the care of family. Follow up with her primary care physician as previously scheduled; the patient can follow up with [facility] or [facility] if clinically indicated. DICTATING PHYSICIAN: MADONNA BURRIS M.D. [id number] Y#: [id number] ID: [id number] JOB#: [id number] ACCT: [id number] cc:MADONNA BURRIS M.D. [facility],
== END 2017-07-24 20:53 | disposition home or self-care (01) | DRG 389 ==
LOC: ER 20:02 → INTOOBSV 07-21 00:37 → EH 07-21 00:37 → 5 07-21 01:30 → OBSVTOIN 07-22 18:02 → 2S 07-23 01:42
PROVIDERS: ADMIT Surgery; ATTEND Surgery
DX: K56.609 Unspecified intestinal obstruction, unspecified as to partial versus complete obstruction (principal); Q61.3 Polycystic kidney, unspecified; Q44.6 Cystic disease of liver; I10 Essential (primary) hypertension; Z87.891 Personal history of nicotine dependence
CPT/HCPCS: 36415; 74019; 74177; 80048; 80053; 81001; 83605; 83690; 85025; 85027; 96361; 96374; 96375; 99285; J1170; J2405; J3480; J3490; J7030; J7040; S0119

== ENCOUNTER 2017-08-02 19:11 | Inpatient (IN) | payer BC ==
[2017-08-02] MEDS ORDERED: NORMAL SALINE 1000 ML 1,000 ML IV ONE ×2 (19:33→22:56)
[2017-08-02] MEDS ORDERED: ONDANSETRON HCL INJ/PF 4 MG/2 ML SDV IV ONE (19:33)
[2017-08-02] MEDS ORDERED: HYDROMORPHONE HCL INJ/PF 2 MG/ML AMPULE IV ONE (19:33)
--- NOTE | 2017-08-02 19:35 | ER Document Report ---
ED Medical Screen (RME) - General Chief Complaint: Abdominal Pain Stated Complaint: VOMITING Time Seen by Provider: 08/02/17 19:33 Notes: Patient has a history of polycystic kidneys and liver. Last year she had part of her liver removed due to this. Since then she has had 2 bowel obstructions. She currently is having severe abdominal pain and vomiting consistent with the pain that she has had with previous bowel obstructions. TRAVEL OUTSIDE OF THE [place] IN LAST 30 DAYS: No - Related Data Allergies/Adverse Reactions: No Known Allergies Allergy (Verified 08/02/17 19:19) Past Medical History - Past Medical History Cardiac Medical History: Reports: Hx Hypertension Denies: Hx Coronary Artery Disease, Hx Heart Attack Pulmonary Medical History: Denies: Hx Asthma, Hx Bronchitis, Hx COPD, Hx Pneumonia Neurological Medical History: Denies: Hx Cerebrovascular Accident, Hx Seizures Renal/ Medical History: Denies: Hx Peritoneal Dialysis Musculoskeltal Medical History: Denies Hx Arthritis, Reports Hx Multiple Sclerosis Past Surgical History: Reports: Hx Tonsillectomy, Other - Resection of the liver cysts - Immunizations Hx Diphtheria, Pertussis, Tetanus Vaccination: No History of Influenza Vaccine for 03/2017 - 08/2017 Season: No Physical Exam - Vital signs Vitals: Temp Pulse Resp BP Pulse Ox 98.1 F 98 20 168/108 H 100 08/02/17 19:26 08/02/17 19:26 08/02/17 19:26 08/02/17 19:26 08/02/17 19:26 Course - Vital Signs Vital signs: Temp Pulse Resp BP Pulse Ox 98.1 F 98 20 168/108 H 100 08/02/17 19:26 08/02/17 19:26 08/02/17 19:26 08/02/17 19:26 08/02/17 19:26
[2017-08-02 20:20] LABS: HEMATOCRIT 47.7 % (36.0-47.0); HEMOGLOBIN 15.6 g/dL (12.0-15.5); MEAN CORPUSCULAR HEMOGLOBIN 26.3 pg (27.0-33.4); MEAN CORPUSCULAR HGB CONC 32.8 g/dL (32.0-36.0); MEAN CORPUSCULAR VOLUME 80 fl (80-97); PLATELET COUNT 334 10^3/uL (150-450); RED BLOOD COUNT 5.95 10^6/uL (3.72-5.28); RED CELL DISTRIBUTION WIDTH 16.3 % (11.5-14.0)
[2017-08-02 20:30] LABS: ALANINE AMINOTRANSFERASE 45 U/L (9-52); ALBUMIN 4.9 g/dL (3.5-5.0); ALKALINE PHOSPHATASE 140 U/L (38-126); ASPARTATE AMINO TRANSFERASE 28 U/L (14-36); BILIRUBIN,DIRECT 0.2 mg/dL (0.0-0.4); BILIRUBIN,TOTAL 0.5 mg/dL (0.2-1.3); BLOOD UREA NITROGEN 20 mg/dL (7-20); CALCIUM 11.9 mg/dL (8.4-10.2); GLUCOSE 177 mg/dL (75-110); POTASSIUM 3.9 mmol/L (3.6-5.0); TOTAL PROTEIN 7.7 g/dL (6.3-8.2)
--- NOTE | 2017-08-02 20:35 | RADIOLOGY REPORT (SQ) ---
EXAM DESCRIPTION: ACUTE ABDOMEN SERIES COMPLETED DATE/TIME: 08/02/2017 8:24 pm REASON FOR STUDY: hx sbo/pain COMPARISON: Abdominal x-ray dated 07/24/2017. Chest x-ray dated 03/07/2014. NUMBER OF VIEWS: Three views. TECHNIQUE: Frontal chest, supine abdomen and upright/decubitus abdomen radiographic images acquired. LIMITATIONS: None. FINDINGS: CHEST: Lungs clear of infiltrates. There is right paratracheal fullness which has increas ed since the prior chest x-ray in 2013. FREE AIR: None. No abnormal gas collections. BOWEL GAS PATTERN: Nonobstructive pattern. No dilated loops or air fluid levels. CALCIFICATIONS: No suspicious calcifications. HARDWARE: Surgical clips. SOFT TISSUES: No gross mass or suggestion of organomegaly. BONES: No acute fracture. No worrisome bone lesions. OTHER: No other significant finding. IMPRESSION: 1. NO RADIOGRAPHIC EVIDENCE FOR ACUTE ABDOMINAL DISEASE. 2. RIGHT PARATRACHEAL FULLNESS ON CHEST X-RAY. THIS MAY BE DUE TO VASCULAR STRUCTURES, SOFT TISSUE, OR ADENOPATHY. WOULD RECOMMEND CT OF THE CHEST TO EVALUATE. TECHNICAL DOCUMENTATION: JOB ID: [id number] [employer]- All Rights Reserved Reading location - IP/workstation name: [email or web address]
[2017-08-02 20:42] LABS: ANION GAP 19 (5-19); CARBON DIOXIDE 18 mmol/L (22-30); CHLORIDE 103 mmol/L (98-107); SODIUM 139.8 mmol/L (137-145)
--- NOTE | 2017-08-02 20:42 | ER Document Report ---
ED General - General Mode of Arrival: Ambulatory Information source: Patient TRAVEL OUTSIDE OF THE [place] IN LAST 30 DAYS: No <RUPERTO RITTER - Last Filed: 08/03/17 00:56> <BERNIE EVANS - Last Filed: 08/03/17 02:24> - General Chief Complaint: Abdominal Pain Stated Complaint: VOMITING Time Seen by Provider: 08/02/17 19:33 Notes: Patient is a 46 year old female with a history of polycystic kidney and liver disease and multiple bowel obstructions presents to the emergency department complaining of severe abdominal pain with nausea and vomiting onset around 1600 today. Patient describes her abdominal pain as sharp and stabbing further stating her symptoms are similar to her previous bowel obstructions. At bedside patient states her abdominal pain has subsided. Patient also mentions diaphoresis and chills. Patient denies any cough or urinary problems. Due to having a polycystic liver, the patient had part of her liver removed. (RUPERTO RITTER) - Related Data Allergies/Adverse Reactions: No Known Allergies Allergy (Verified 08/02/17 19:19) Past Medical History - General Information source: Patient - Social History Smoking Status: Never Smoker Family History: CAD Patient has suicidal ideation: No Patient has homicidal ideation: No - Past Medical History Cardiac Medical History: Reports: Hx Hypertension Musculoskeltal Medical History: Reports Hx Multiple Sclerosis Past Surgical History: Reports: Hx Tonsillectomy, Other - Resection of the liver cysts - Immunizations Hx Diphtheria, Pertussis, Tetanus Vaccination: No <RUPERTO RITTER - Last Filed: 08/03/17 00:56> Review of Systems - Review of Systems Constitutional: See HPI, Chills, Diaphoresis EENT: No symptoms reported Cardiovascular: No symptoms reported Respiratory: No symptoms reported Gastrointestinal: See HPI, Abdominal pain, Nausea, Vomiting Genitourinary: No symptoms reported Female Genitourinary: No symptoms reported Musculoskeletal: No symptoms reported Skin: No symptoms reported Hematologic/Lymphatic: No symptoms reported Neurological/Psychological: No symptoms reported -: Yes All other systems reviewed and negative <RUPERTO RITTER - Last Filed: 08/03/17 00:56> Physical Exam <RUPERTO RITTER - Last Filed: 08/03/17 00:56> <BERNIE EVANS - Last Filed: 08/03/17 02:24> - Vital signs Vitals: Temp Pulse Resp BP Pulse Ox 98.1 F 98 20 168/108 H 100 08/02/17 19:26 08/02/17 19:26 08/02/17 19:26 08/02/17 19:26 08/02/17 19:26 - Notes Notes: GENERAL: Alert, interacts well. No acute distress. HEAD: Normocephalic, atraumatic. EYES: Pupils equal, round, and reactive to light. Extraocular movements intact. ENT: Oral mucosa moist, tongue midline. NECK: Full range of motion. Supple. Trachea midline. LUNGS: Clear to auscultation bilaterally, no wheezes, rales, or rhonchi. No respiratory distress. HEART: Regular rate and rhythm. No murmurs, gallops, or rubs. ABDOMEN: Soft, non-tender. Mild distention. Bowel sounds present in all 4 quadrants. EXTREMITIES: Moves all 4 extremities spontaneously. NEUROLOGICAL: Alert and oriented x3. Normal speech. PSYCH: Normal affect, normal mood. SKIN: Warm, dry, normal turgor. No rashes or lesions noted. (RUPERTO RITTER) Course - Laboratory Result Diagrams: 08/02/17 20:00 08/02/17 20:00 <RUPERTO RITTER - Last Filed: 08/03/17 00:56> - Laboratory Result Diagrams: 08/02/17 20:00 08/02/17 20:00 <BERNIE EVANS - Last Filed: 08/03/17 02:24> - Re-evaluation Re-evalutation: 08/02/17 21:[address] Royal, recommended PO IV contrast and stated he would come see the patient. (RUPERTO RITTER) Patient is an unfortunate 46-year-old female who comes in with abdominal distention vomiting. Patient recently had a bowel obstruction. She has had surgery in the past to remove part of her liver and also her gallbladder due to polycystic liver and kidney disease. Patient was discussed with the surgeon on-call who recommended p.o. and IV contrasted abdominal CT. Unfortunately, the patient began vomiting and could not tolerate p.o. contrast. CT is concerning for early obstruction. Patient will be kept n.p.o. and given fluids IV. No NG tube will be placed at this time. Patient is agreeable with this plan. Stable at the time of admission. (BERNIE EVANS) - Vital Signs Vital signs: Temp Pulse Resp BP Pulse Ox 98.1 F 98 14 152/95 H 98 08/02/17 19:26 08/02/17 19:26 08/03/17 00:01 08/03/17 00:01 08/03/17 00:01 - Laboratory Laboratory results interpreted by me: 08/02/17 08/02/17 08/02/17 20:00 20:00 21:28 WBC 14.0 H RBC 5.95 H Hgb 15.6 H Hct 47.7 H MCH 26.3 L RDW 16.3 H Seg Neuts % (Manual) 94 H Band Neutrophils % 1 L Lymphocytes % (Manual) 3 L Monocytes % (Manual) 2 L Abs Neuts (Manual) 13.3 H Abs Lymphs (Manual) 0.4 L Carbon Dioxide 18 L Est GFR (Non-Af Amer) 51 L Glucose 177 H Calcium 11.9 H Alkaline Phosphatase 140 H Urine Protein 100 H Urine Ketones 20 H Critical Care Note - Critical Care Note Total time excluding time spent on procedures (mins): 35 - Evaluation and management of abdominal pain, vomiting, continued vomiting, coordination with specialist, coordination of admission, counseling of patient <BERNIE EVANS - Last Filed: 08/03/17 02:24> Discharge <RUPERTO RITTER - Last Filed: 08/03/17 00:56> - Discharge Admitting Provider: Surgicalist - [facility] Admitted: Medical Floor <BERNIE EVANS - Last Filed: 08/03/17 02:24> - Discharge Clinical Impression: Bowel obstruction Qualifiers: Intestinal obstruction type: unspecified Intestinal obstruction extent: partial Qualified Code(s): K56.600 - Partial intestinal obstruction, unspecified as to cause Vomiting Qualifiers: Vomiting type: unspecified Vomiting Intractability: intractable Nausea presence : with nausea Qualified Code(s): R11.2 - Nausea with vomiting, unspecified Condition: Stable Disposition: ADMITTED INPATIENT Scribe Attestation: 08/03/17 02:24 I personally performed the services described in the documentation, reviewed and edited the documentation which was dictated to the scribe in my presence, and it accurately records my words and actions. (BERNIE EVANS) Scribe Documentation - Scribe Written by Cathryn:: Cathryn Lovell, 08/02/2017 21:04 acting as scribe for :: Dora <RUPERTO RITTER - Last Filed: 08/03/17 00:56>
[2017-08-02 20:46] LABS: ABSOLUTE LYMPHOCYTES# (MANUAL) 0.4 10^3/uL (0.5-4.7); ABSOLUTE MONOCYTES # (MANUAL) 0.3 10^3/uL (0.1-1.4); ABSOLUTE NEUTROPHILS# (MANUAL) 13.3 10^3/uL (1.7-8.2); BAND NEUTROPHILS % (MANUAL) 1 % (3-5); BASOPHILS % (MANUAL) 0 % (0-2); EOSINOPHILS % (MANUAL) 0 % (0-6); LYMPHOCYTES % (MANUAL) 3 % (13-45); MONOCYTES % (MANUAL) 2 % (3-13); SEGMENTED NEUTROPHILS % (MAN) 94 % (42-78); TOTAL CELLS COUNTED 100
[2017-08-02 20:47] LABS: PLATELET COMMENT ADEQUATE
[2017-08-02 20:48] LABS: ANISOCYTOSIS 1+; OVALOCYTES SLIGHT; PLATELET LARGE PRESENT; POIKILOCYTOSIS SLIGHT
[2017-08-02 21:50] LABS: APPEARANCE,URINE SLIGHTLY-CLOUDY; BILIRUBIN,URINE NEGATIVE (NEGATIVE); COLOR,URINE YELLOW; GLUCOSE, URINE NEGATIVE (NEGATIVE); KETONES,URINE 20 mg/dL (NEGATIVE); LEUKOCYTE ESTERASE,URINE NEGATIVE (NEGATIVE); NITRITE,URINE NEGATIVE (NEGATIVE); PROTEIN,URINE 100 mg/dL (NEGATIVE); URINE SPECIFIC GRAVITY 1.009; UROBILINOGEN,URINE NEGATIVE mg/dL (<2.0)
[2017-08-02] MEDS ORDERED: METOCLOPRAMIDE HCL INJ/PF 10 MG/2 ML SDV IV ONE (23:27)
--- NOTE | 2017-08-02 23:54 | RADIOLOGY REPORT (SQ) ---
EXAM DESCRIPTION: CT ABD/PELVIS WITH IV ONLY CLINICAL HISTORY: 46 years Female, evaluate for bowel obstruction COMPARISON: None. TECHNIQUE: 100 mL Isovue-370 IV contrast. Coronal and sagittal reformat. This exam was performed according to our departmental dose-optimization program, which includes automated exposure control, adjustment of the mA and/or kV according to patient size and/or use of iterative reconstruction technique. FINDINGS: Fluid-filled small and large bowel including moderately dilated 3.2 cm diameter small bowel loops. No significant free fluid. Few air-fluid levels. Upper abdominal surgical clips. 27 cm hepatomegaly. Innumerable likely benign cysts of the liver and kidneys definitively characterized consistent with polycystic disease with right kidney measuring 16 cm and left kidney measuring 18 cm. Left renal cyst measuring 6.5 cm. Cholecystectomy clips. Inferior thorax, pancreas, spleen, adrenals, pelvic organs, lymphatics, vasculature, and musculoskeleton appear otherwise unremarkable. IMPRESSION: 1. Ileus/malabsorption pattern of the small and large bowel. Differential diagnosis includes low-grade obstruction. 2. Polycystic liver and kidney disease.
--- NOTE | 2017-08-03 00:03 | PDOC H&P ---
History of Present Illness Admission Date/PCP: RICHMOND MORRIS MD Patient complains of: abdominal pains associated with vomiting History of Present Illness: BEATRICE OSPINA is a 46 year old female started c/o severe epigastric pains associated with vomiting this evening. Has history of Multiple sclerosis and polycystic kidneys and liver. Had left lobe of the liver resected because it was "not working" and obstructing the stomach.This was done at [facility]. Also had cholecystectomy at the same time. Had 2 episodes of partial small bowel obstruction which both spontaneously resoved. @nd episode was last 07/22/17 here at [facility] and discharge 07/27/17. After discharged, she still feels bloated but felt better on the 2nd day when she took a laxative. She occasionally takes a laxative for constipation. I examined her after the CT scan where her pains are much better. She did throw up some of the po contrast. Past Medical History Cardiac Medical History: Reports: Hypertension Denies: Coronary Artery Disease, Myocardial Infarction Pulmonary Medical History: Denies: Asthma, Bronchitis, Chronic Obstructive Pulmonary Disease (COPD), Pneumonia Neurological Medical History: Denies: Seizures Musculoskeltal Medical History: Denies: Arthritis Hematology: Denies: Anemia Past Surgical History Past Surgical History: Reports: Tonsillectomy, Other - Resection of the liver cysts and cholecystectomy Social History Smoking Status: Never Smoker Frequency of Alcohol Use: Occasional Hx Recreational Drug Use: No Drugs: None Hx Prescription Drug Abuse: No Family History Family History: CAD Parental Family History Reviewed: Yes - Mother on the kidney transplant list. She also has polycystic Kidney. Children Family History Reviewed: No Sibling(s) Family History Reviewed.: No Medication/Allergy Home Medications: Dextroamphetamine/Amphetamine [Adderall 10 mg Tablet] 10 mg PO DAILY 03/07/14 Metoprolol Succinate [Toprol Xl 50 mg Tab.sr] 50 mg PO QPM 03/08/14 Fingolimod HCl [Gilenya] 0.5 mg PO QPM 03/16/16 Venlafaxine HCl ER [Effexor Xr 75 mg Cap.sr] 75 mg PO DAILY 03/16/16 Allergies/Adverse Reactions: No Known Allergies Allergy (Verified 08/02/17 19:19) Review of Systems Constitutional: PRESENT: chills - On her way to the hospital associated with diaphoresis. Eyes: PRESENT: other - no visual/hearing problems Cardiovascular: PRESENT: other - no chest pains Respiratory: PRESENT: other - no dyspnea Gastrointestinal: PRESENT: abdominal pain, nausea, vomiting Genitourinary: PRESENT: other - no dysuria Musculoskeletal: PRESENT: other - no joint pains Neurological: PRESENT: other - no seizures Psychiatric: PRESENT: anxiety Endocrine: PRESENT: other - no polyuria Hematologic/Lymphatic: PRESENT: other - no easy bruising Physical Exam Vital Signs: Temp Pulse Resp BP Pulse Ox 98.1 F 98 13 157/102 H 100 08/02/17 19:26 08/02/17 19:26 08/02/17 21:59 08/02/17 21:58 08/02/17 21:59 Intake & Output 08/01/17 08/02/17 08/03/17 06:59 06:59 06:59 Weight 66.6 kg General appearance: PRESENT: no acute distress Head exam: PRESENT: atraumatic, normocephalic Eye exam: PRESENT: conjunctiva pink Mouth exam: PRESENT: moist Neck exam: PRESENT: full ROM Respiratory exam: PRESENT: clear to auscultation marcel Cardiovascular exam: PRESENT: RRR Pulses: PRESENT: normal radial pulses Vascular exam: PRESENT: normal capillary refill GI/Abdominal exam: PRESENT: soft, tenderness - minimal epigastric tenderness Rectal exam: PRESENT: deferred Extremities exam: PRESENT: full ROM Musculoskeletal exam: PRESENT: ambulatory Neurological exam: PRESENT: alert, awake, oriented to person, oriented to place , oriented to time, oriented to situation Psychiatric exam: PRESENT: appropriate affect Skin exam: PRESENT: normal color, warm Results Laboratory Results: 08/02/17 20:00 08/02/17 20:00 08/02/17 08/02/17 08/02/17 20:00 20:00 21:28 WBC 14.0 H RBC 5.95 H Hgb 15.6 H Hct 47.7 H MCV 80 MCH 26.3 L MCHC 32.8 RDW 16.3 H Plt Count 334 Seg Neutrophils % Not Reportable Lymphocytes % Not Reportable Monocytes % Not Reportable Eosinophils % Not Reportable Basophils % Not Reportable Absolute Neutrophils Not Reportable Absolute Lymphocytes Not Reportable Absolute Monocytes Not Reportable Absolute Eosinophils Not Reportable Absolute Basophils Not Reportable Sodium 139.8 Potassium 3.9 Chloride 103 Carbon Dioxide 18 L Anion Gap 19 BUN 20 Creatinine 1.14 Est GFR ( Amer) > 60 Est GFR (Non-Af Amer) 51 L Glucose 177 H Calcium 11.9 H Total Bilirubin 0.5 AST 28 ALT 45 Alkaline Phosphatase 140 H Total Protein 7.7 Albumin 4.9 Lipase 69.0 Urine Color YELLOW Urine Appearance SLIGHTLY-CLOUDY Urine pH 9.0 Ur Specific [place] 1.009 Urine Protein 100 H Urine Glucose (UA) NEGATIVE Urine Ketones 20 H Urine Blood NEGATIVE Urine Nitrite NEGATIVE Ur Leukocyte Esterase NEGATIVE Urine RBC (Auto) 1 Impressions: Acute Abdomen Series 08/02/17 19:33 IMPRESSION: 1. NO RADIOGRAPHIC EVIDENCE FOR ACUTE ABDOMINAL DISEASE. 2. RIGHT PARATRACHEAL FULLNESS ON CHEST X-RAY. THIS MAY BE DUE TO VASCULAR STRUCTURES, SOFT TISSUE, OR ADENOPATHY. WOULD RECOMMEND CT OF THE CHEST TO EVALUATE. Assessment & Plan - Diagnosis (1) Small bowel obstruction, partial Is this a current diagnosis for this admission?: Yes - Time Time Spent: 30 to 50 Minutes - Inpatient Certification Medical Necessity: Need For IV Fluids, Need for Pain Control, Risk of Complication if Not Cared For in Hospital - Plan Summary Plan Summary: Keep NPO Insert NGT if with N/V Hydrate PRN pain mx
[2017-08-03] MEDS ORDERED: NORMAL SALINE 1000 ML 1,000 ML IV ONE (00:50)
[2017-08-03 07:26] LABS: HEMATOCRIT 39.7 % (36.0-47.0); MEAN CORPUSCULAR HEMOGLOBIN 26.2 pg (27.0-33.4); MEAN CORPUSCULAR HGB CONC 32.3 g/dL (32.0-36.0); MEAN CORPUSCULAR VOLUME 81 fl (80-97); PLATELET COUNT 196 10^3/uL (150-450); RED BLOOD COUNT 4.89 10^6/uL (3.72-5.28); RED CELL DISTRIBUTION WIDTH 16.5 % (11.5-14.0); WHITE BLOOD COUNT 7.2 10^3/uL (4.0-10.5)
[2017-08-03 07:33] LABS: HEMOGLOBIN 12.8 g/dL (12.0-15.5)
[2017-08-03 07:41] LABS: ANION GAP 12 (5-19); BLOOD UREA NITROGEN 19 mg/dL (7-20); CALCIUM 8.7 mg/dL (8.4-10.2); CARBON DIOXIDE 22 mmol/L (22-30); CHLORIDE 110 mmol/L (98-107); GLUCOSE 83 mg/dL (75-110); POTASSIUM 3.9 mmol/L (3.6-5.0)
[2017-08-03 07:54] LABS: ABSOLUTE LYMPHOCYTES# (MANUAL) 0.2 10^3/uL (0.5-4.7); ABSOLUTE MONOCYTES # (MANUAL) 0.7 10^3/uL (0.1-1.4); ABSOLUTE NEUTROPHILS# (MANUAL) 6.3 10^3/uL (1.7-8.2); BASOPHILS % (MANUAL) 0 % (0-2); EOSINOPHILS % (MANUAL) 0 % (0-6); LYMPHOCYTES % (MANUAL) 3 % (13-45); MONOCYTES % (MANUAL) 10 % (3-13); PLATELET COMMENT ADEQUATE; RBC MORPHOLOGY COMMENT NORMO-CYTIC/CHROMIC; SEGMENTED NEUTROPHILS % (MAN) 87 % (42-78); TOTAL CELLS COUNTED 100; TOXIC GRANULATION SLIGHT
[2017-08-03] MEDS: NORMAL SALINE 1000 ML 1,000 ML IV PRN ×2 (10:21→17:21)
--- NOTE | 2017-08-03 11:48 | PDOC PROGRESS REPORT ---
Subjective Subjective:: Feels better this morning. Still not passing gas or having bowel movements. But no abdominal pain and no nausea at this morning. Patient denies any shortness of breath nor chest pain. No prior history of cardiac problems. Reason For Visit: INTESTINAL OBSTRUCTION, VOMITING Physical Exam Vital Signs: Temp Pulse Resp BP Pulse Ox 98.2 F 72 17 137/71 H 100 08/03/17 07:29 08/03/17 07:29 08/03/17 07:29 08/03/17 07:29 08/03/17 07:29 Intake & Output 08/02/17 08/03/17 08/04/17 06:59 06:59 06:59 Intake Total 439 Output Total 0 Balance 439 Weight 68 kg General appearance: PRESENT: no acute distress, cooperative Respiratory exam: PRESENT: clear to auscultation marcel Cardiovascular exam: PRESENT: RRR GI/Abdominal exam: PRESENT: other - Soft, nondistended, nontender to palpation. Results Laboratory Results: 08/03/17 06:05 08/03/17 06:05 08/03/17 08/03/17 06:05 06:05 WBC 7.2 RBC 4.89 Hgb 12.8 D Hct 39.7 MCV 81 MCH 26.2 L MCHC 32.3 RDW 16.5 H Plt Count 196 Seg Neutrophils % Not Reportable Lymphocytes % Not Reportable Monocytes % Not Reportable Eosinophils % Not Reportable Basophils % Not Reportable Absolute Neutrophils Not Reportable Absolute Lymphocytes Not Reportable Absolute Monocytes Not Reportable Absolute Eosinophils Not Reportable Absolute Basophils Not Reportable Sodium 144.0 Potassium 3.9 Chloride 110 H Carbon Dioxide 22 Anion Gap 12 BUN 19 Creatinine 0.94 Est GFR ( Amer) > 60 Est GFR (Non-Af Amer) > 60 Glucose 83 Calcium 8.7 Impressions: Acute Abdomen Series 08/02/17 19:33 IMPRESSION: 1. NO RADIOGRAPHIC EVIDENCE FOR ACUTE ABDOMINAL DISEASE. 2. RIGHT PARATRACHEAL FULLNESS ON CHEST X-RAY. THIS MAY BE DUE TO VASCULAR STRUCTURES, SOFT TISSUE, OR ADENOPATHY. WOULD RECOMMEND CT OF THE CHEST TO EVALUATE. Abdomen/Pelvis CT 08/02/17 21:43 IMPRESSION: 1. Ileus/malabsorption pattern of the small and large bowel. Differential diagnosis includes low-grade obstruction. 2. Polycystic liver and kidney disease. Assessment & Plan - Diagnosis (1) Small bowel obstruction, partial Is this a current diagnosis for this admission?: Yes Plan: Patient improved overnight but still not passing gas or having bowel movements. Will give her some enemas today. Allow her oral contrast to pass. Will repeat KUB tomorrow. With her repeat admission for partial small bowel obstruction she may have a low-grade small bowel obstruction. I have recommended to her a enteroclysis tomorrow to rule out a mechanical source of her symptoms. I have also recommended to the patient a colonoscopy in the near future. Patient was noted with abnormal cardiac rhythm strip. It appears to be normal sinus rhythm but there are ST changes. And widening of the QRS complex. I will obtain a EKG and cardiology consult. Patient is completely asymptomatic.
[2017-08-03] MEDS ORDERED: NA PHOS,M-B/NA PHOS,DI-BA (ADULT) 133 ML ENEMA PR ONE (12:00)
--- NOTE | 2017-08-03 13:02 | EKG REPORT ---
SEVERITY:- ABNORMAL ECG - SINUS RHYTHM LEFT BUNDLE BRANCH BLOCK : Confirmed by: Antony Lozano MD 03-Aug-2017 13:01:47
[2017-08-03] MEDS ORDERED: ACETAMINOPHEN 325 MG TABLET PO ONE (17:00)
[2017-08-03] MEDS ORDERED: VENLAFAXINE HCL 37.5 MG CAP.SR.24H PO ONE (18:00)
--- NOTE | 2017-08-03 18:38 | XCELERA REPORT ---
[address] [address] Transthoracic Echocardiogram Report Name: BEATRICE OSPINA Age: 46 yrs Gender: Female : 1970 Patient Status: Inpatient Patient Location: [address] [place], [place] [address] Study Date: 08/03/2017 01:56 PM Height: 67 in Weight: 149 lb BSA: 1.8 m2 Procedure: A complete two-dimensional transthoracic echocardiogram was performed (2D, M-mode, spectral and color flow Doppler). The study was technically adequate with some images being suboptimal in quality. Reason For Study: heart murmur Ordering Physician: CHRISTIAN EVANS Performed By: Nolvia Thompson Interpretation Summary The left ventricular ejection fraction is normal. The left ventricle is grossly normal size. Doppler measurements suggest normal left ventricular diastolic function There is normal left ventricular wall thickness. Wall motion cannot be accurately commented on, but no definite regional wall motion abnormalities noted. Borderline right ventricular enlargement. The right ventricular systolic function is normal. The left atrial size is normal. The right atrium is normal in size There is a trace to mild amount of mitral regurgitation There is no mitral valve stenosis. There is a trace amount of aortic regurgitation There is no aortic valve stenosis There is a trace to mild amount of tricuspid regurgitation Best estimated RVSP is approximately 30-35 mm/Hg. The aortic root is not well visualized but is probably normal size. The inferior vena cava was not well visualized There is no pericardial effusion. MMode/2D Measurements & Calculations RVDd: 3.5 cm LVIDd: 4.4 cm FS: 28.3 % Ao root diam: 2.4 cm IVSd: 0.77 cm LVIDs: 3.1 cm EDV(Teich): 85.4 ml LVPWd: 0.81 cm ESV(Teich): 38.5 ml Ao root area: 4.5 cm2 EF(Teich): 55.0 % LA dimension: 3.5 cm Doppler Measurements & Calculations MV E max magali: MV P1/2t max magali: Ao V2 max: LV V1 max P.9 cm/sec 81.9 cm/sec 102.4 cm/sec 2.9 mmHg MV A max magali: MV P1/2t: 64.5 msec Ao max PG: LV V1 max: 69.6 cm/sec 4.2 mmHg 85.7 cm/sec MV E/A: 1.2 MVA(P1/2t): 3.4 cm2 MV dec slope: 372.3 cm/sec2 PA V2 max: TR max magali: 101.0 cm/sec 262.8 cm/sec PA max PG: TR max P.6 mmHg 4.1 mmHg Left Ventricle The left ventricle is grossly normal size. There is normal left ventricular wall thickness. The left ventricular ejection fraction is normal. Doppler measurements suggest normal left ventricular diastolic function. Wall motion cannot be accurately commented on, but no definite regional wall motion abnormalities noted. Right Ventricle Borderline right ventricular enlargement. There is normal right ventricular wall thickness. The right ventricular systolic function is normal. Atria The right atrium is normal in size. The left atrial size is normal. Interarterial septum not well visualized and not well dopplered. Cannot comment on ASD/PFO presence. Mitral Valve The mitral valve is grossly normal. There is no mitral valve stenosis. There is a trace to mild amount of mitral regurgitation. Aortic Valve The aortic valve opens well. The aortic valve is trileaflet. There is no aortic valve stenosis. There is a trace amount of aortic regurgitation. Tricuspid Valve The tricuspid valve is not well visualized, but is grossly normal. There is no tricuspid stenosis. There is a trace to mild amount of tricuspid regurgitation. Best estimated RVSP is approximately 30-35 mm/Hg. Pulmonic Valve The pulmonic valve is not well visualized. Great Vessels The aortic root is not well visualized but is probably normal size. The inferior vena cava was not well visualized. Effusions There is no pericardial effusion. : CHRISTIAN EVANS > Christian Evans
--- NOTE | 2017-08-03 18:57 | PDOC CONSULTATION ---
Consultation Consult Date: 08/03/17 Attending physician:: SUZY SILVA Consult reason:: Abnormal electrocardiogram History of Present Illness Admission Date/PCP: 08/03/17 00:47 RICHMOND MORRIS MD Patient complains of: Abdominal pain along with nausea and vomiting History of Present Illness: BEATRICE OSPINA is a 46 year old female started c/o severe epigastric pains associated with vomiting this evening. Has history of Multiple sclerosis and polycystic kidneys and liver. Had left lobe of the liver resected because it was "not working" and obstructing the stomach.This was done at [facility]. Also had cholecystectomy at the same time. Had 2 episodes of partial small bowel obstruction which both spontaneously resoved. @nd episode was last 07/22/17 here at [facility] and discharge 07/27/17. After discharged, she still feels bloated but felt better on the 2nd day when she took a laxative. She occasionally takes a laxative for constipation. I examined her after the CT scan where her pains are much better. She did throw up some of the po contrast. Patient is being considered for surgery for recurrent small bowel obstruction. Patient was however noted to have left bundle branch block pattern. This was on EKG. I was therefore asked to consult on this patient. Past Medical History Cardiac Medical History: Reports: Hypertension Denies: Coronary Artery Disease, Myocardial Infarction Pulmonary Medical History: Denies: Asthma, Bronchitis, Chronic Obstructive Pulmonary Disease (COPD), Pneumonia Neurological Medical History: Denies: Seizures Renal/ Medical History: Reports: Other - Polycystic renal disease GI Medical History: Reports: Other - Polycystic liver disease Musculoskeltal Medical History: Denies: Arthritis Psychiatric Medical History: Denies: Depression Hematology: Denies: Anemia Past Surgical History Past Surgical History: Reports: Tonsillectomy, Other - Resection of the liver cysts Social History Information Source: Patient Smoking Status: Former Smoker Cigarettes Packs Per Day: 0.1 Number of Years Smokin Last Time Smoked: Frequency of Alcohol Use: Rare Hx Recreational Drug Use: No Drugs: None Hx Prescription Drug Abuse: No - Advance Directive Resuscitation Status: Full Code Family History Family History: CAD Parental Family History Reviewed: Yes Children Family History Reviewed: Yes Sibling(s) Family History Reviewed.: Yes Medication/Allergy Home Medications: Dextroamphetamine/Amphetamine [Adderall XR 25 mg Capsule] 1 cap.sr PO DAILY 06/22 Fingolimod HCl [Gilenya] 0.5 mg PO DAILY 08/03/17 Metoprolol Succinate [Toprol Xl 25 mg Tab.sr] 25 mg PO DAILY 08/03/17 Venlafaxine HCl ER [Effexor Xr 37.5 mg Cap.sr] 37.5 mg PO DAILY 08/03/17 Allergies/Adverse Reactions: No Known Allergies Allergy (Verified 08/02/17 19:19) Review of Systems Review of Systems: Please see history of present illness and past medical history as wall. Constitutional: No fever or chills reported. Head : No recent chronic headaches, recent head injury. Eyes: No recent eye pain, diplopia, redness, discharge, acute visual changes. Ears: No recent chronic ear pain, acute hearing loss, ear discharge. Oral cavity: No recent ulcerations, bleeding, oral cavity discomfort. Neck: No recent acute neck pain reported. Hematologic: No recent easy bruising or bleeding or hematologic malignancy reported. Lymphatic: No recent lymphatic malignancy, chronic lymphadenopathy reported yet Cardiovascular system review: See history of present illness. Respiratory system review: No recent chronic cough, hemoptysis, blood clots in the lungs reported. Mild Shortness of breath on exertion Gastrointestinal system review: Presented with abdominal pain and nausea vomiting but denied hematemesis, melena, recent change in bowel habits. History of polycystic liver disease. Genitourinary system review: No recent acute or chronic hematuria, flank pain, UTI etc. reported. History of polycystic kidney disease. Skin system review: Negative for any recent abnormal bruising, no rash, no pruritus reported. Neurologic: No prior history of strokes, mini strokes, seizure disorder. Psychologic: No history of major psychosis or major depression reported. Musculoskeletal: Minor aches and pains reported. No acute joint swelling reported. Endocrine: No recent polyuria, polydipsia, recent heat or cold intolerance. Physical Exam Vital Signs: Temp Pulse Resp BP Pulse Ox 98.1 F 72 17 130/75 H 100 08/03/17 15:20 08/03/17 15:20 08/03/17 15:20 08/03/17 15:20 08/03/17 15:20 Intake & Output 08/02/17 08/03/17 08/04/17 06:59 06:59 06:59 Intake Total 439 1452 Output Total 0 Balance 439 1452 Weight 68 kg Exam: GENERAL: well-nourished and in no acute distress. Alert and oriented x3 HEAD: Atraumatic, normocephalic. EYES: Pupils equal round and reactive to light, extraocular movements intact, sclera anicteric, conjunctiva are normal. ENT: TMs normal, nares patent, oropharynx clear without exudates. Moist mucous membranes. No oral ulcerations or bleeding gums noted NECK: supple without lymphadenopathy. Trachea is central. No cervical or axillary lymphadenopathy noted. Carotids are 2+, JVD WNL LUNGS: Respiration seems nonlabored, no significant accessory muscle action noted. Breath sounds clear to auscultation bilaterally and equal noted. No wheezes rales or rhonchi noted. No significant dullness noted on percussion. CHEST: Palpation of the chest wall shows no significant chest wall tenderness. No other significant abnormalities noted. 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 ABDOMEN: Soft, no significant tenderness appreciated, normoactive bowel sounds. No guarding, no rebound. No rigidity noted . Mild enlargement of the liver noted. EXTREMITIES: Pedal pulses are 1-2+, no calf tenderness noted. No clubbing or cyanosis. Negative pedal edema noted NEUROLOGICAL: Focused neurological exam showed no significant neurologic deficit. Normal speech, no focal weakness appreciated. PSYCH: Normal mood, normal affect. Judgment and insight within normal limits. SKIN: No significant ecchymosis, rash, ulcerations or signs of pruritus noted. MUSCULOSKELETAL EXAM: No significant joint swelling noted. Results Laboratory Results: 08/03/17 06:05 08/03/17 06:05 08/03/17 08/03/17 06:05 06:05 WBC 7.2 RBC 4.89 Hgb 12.8 D Hct 39.7 MCV 81 MCH 26.2 L MCHC 32.3 RDW 16.5 H Plt Count 196 Seg Neutrophils % Not Reportable Lymphocytes % Not Reportable Monocytes % Not Reportable Eosinophils % Not Reportable Basophils % Not Reportable Absolute Neutrophils Not Reportable Absolute Lymphocytes Not Reportable Absolute Monocytes Not Reportable Absolute Eosinophils Not Reportable Absolute Basophils Not Reportable Sodium 144.0 Potassium 3.9 Chloride 110 H Carbon Dioxide 22 Anion Gap 12 BUN 19 Creatinine 0.94 Est GFR ( Amer) > 60 Est GFR (Non-Af Amer) > 60 Glucose 83 Calcium 8.7 Impressions: Acute Abdomen Series 08/02/17 19:33 IMPRESSION: 1. NO RADIOGRAPHIC EVIDENCE FOR ACUTE ABDOMINAL DISEASE. 2. RIGHT PARATRACHEAL FULLNESS ON CHEST X-RAY. THIS MAY BE DUE TO VASCULAR STRUCTURES, SOFT TISSUE, OR ADENOPATHY. WOULD RECOMMEND CT OF THE CHEST TO EVALUATE. Abdomen/Pelvis CT 08/02/17 21:43 IMPRESSION: 1. Ileus/malabsorption pattern of the small and large bowel. Differential diagnosis includes low-grade obstruction. 2. Polycystic liver and kidney disease. Assessment & Plan - Diagnosis (1) Preoperative cardiovascular examination Is this a current diagnosis for this admission?: Yes (2) Abnormal electrocardiogram Is this a current diagnosis for this admission?: Yes (3) Heart murmur Is this a current diagnosis for this admission?: Yes (4) Small bowel obstruction, partial Is this a current diagnosis for this admission?: Yes (5) polycystic kidney and liver Is this a current diagnosis for this admission?: Yes - Notes Notes: Patient cleared for surgery. No contraindications noted. Recommend DVT prophylaxis, pain control etc. Abnormal electrocardiogram: Patient is noted to have left bundle branch block pattern on EKG. This is actually unchanged from before. Patient might benefit from a nuclear stress test, however can be done at a later date. Currently patient not demonstrating any symptoms indicative of ongoing ischemia. Heart murmur: In view of abnormal EKG, opted to do a 2D echo. The results came back satisfactory. Borderline enlargement of the right ventricle was noted. Small bowel obstruction: Patient being managed conservatively. Patient cleared for surgery if surgeons wishes to proceed. Polycystic kidney and liver disease: Currently stable. - Time Time Spent: 30 to 50 Minutes - CODE STATUS was discussed, patient remains full code. Surrogate decision-maker unchanged. Multiple medical problems were addressed. More than 50% of the time spent coordinating care, discussing management plans with involved caregivers. Management plans discussed with involved personnels. Medical decision making was of moderate to high complexity , patient's has multiple comorbidities. Medications reviewed and adjusted accordingly: Yes
[2017-08-03 19:19] LABS: CHOLESTEROL 162.48 mg/dL (0-200); TRIGLYCERIDES 52 mg/dL (<150)
[2017-08-03 19:30] LABS: DIRECT LDL 113 mg/dL (<100)
[2017-08-03] MEDS: HYDROMORPHONE HCL INJ/PF 2 MG/ML AMPULE INJ PRN (23:55)
[2017-08-04] MEDS: NORMAL SALINE 1000 ML 1,000 ML IV PRN ×2 (00:49→08:11)
[2017-08-04] MEDS: HYDROMORPHONE HCL INJ/PF 2 MG/ML AMPULE INJ PRN (07:04)
[2017-08-04] MEDS: ONDANSETRON HCL INJ/PF 4 MG/2 ML SDV IV PRN (07:08)
--- NOTE | 2017-08-04 08:37 | RADIOLOGY REPORT (SQ) ---
EXAM DESCRIPTION: ABDOMEN 2 VIEWS COMPLETED DATE/TIME: 08/04/2017 7:43 am REASON FOR STUDY: sbo COMPARISON: 08/02/2017 NUMBER OF VIEWS: Two views. TECHNIQUE: Supine and erect/decubitus radiographic images of the abdomen acquired. LIMITATIONS: None. FINDINGS: FREE AIR: None. No abnormal gas collections. LUNG BASES: Clear. BOWEL GAS PATTERN: Nonobstructive pattern. No dilated loops or air fluid levels. CALCIFICATIONS: No suspicious calcifications. SOFT TISSUES: No gross mass or suggestion of organomegaly. HARDWARE: Scattered surgical clips are again identified. BONES: No acute fracture. No worrisome bone lesions. OTHER: No other significant finding. IMPRESSION: NO RADIOGRAPHIC EVIDENCE FOR ACUTE ABDOMINAL DISEASE. TECHNICAL DOCUMENTATION: JOB ID: [id number] [employer]- All Rights Reserved Reading location - IP/workstation name: [email or web address]
[2017-08-04] MEDS ORDERED: AMPHETAMINE PO SCH (10:00)
[2017-08-04] MEDS ORDERED: [UNRECOGNIZED DRUG - OTHER] PO SCH (10:00)
[2017-08-04] MEDS ORDERED: DEXTROAMPHETAMINE PO SCH (10:00)
[2017-08-04] MEDS ORDERED: (PENDING PHARMACY ID) (Fingolimod Hcl [Gilenya] 0.5 MG) PO SCH (10:00)
--- NOTE | 2017-08-04 12:30 | PDOC PROGRESS REPORT ---
Subjective Progress Note for:: 08/04/17 Subjective:: Patient claims to be doing better with improvement in abdominal pain and movement of bowels. She was seen in the radiology department while undergoing a small bowel follow-through. Patient denying any chest pain as such. Reason For Visit: PARTIAL BOWEL OBSTRUCTION Physical Exam Vital Signs: Temp Pulse Resp BP Pulse Ox 97.8 F 71 16 132/74 H 97 08/04/17 08:29 08/04/17 08:29 08/04/17 08:29 08/04/17 08:29 08/04/17 08:29 Intake & Output 08/03/17 08/04/17 08/05/17 06:59 06:59 06:59 Intake Total 439 3226 Output Total 0 Balance 439 3226 Weight 68 kg 72.5 kg Exam: GENERAL: well-nourished and in no acute distress. Alert and oriented x3 HEAD: Atraumatic, normocephalic. Receding chin and narrow hard palate EYES: Pupils equal round and reactive to light, extraocular movements intact, sclera anicteric, conjunctiva are normal. ENT: TMs normal, nares patent, oropharynx clear without exudates. Moist mucous membranes. No oral ulcerations or bleeding gums noted NECK: supple without lymphadenopathy. Trachea is central. No cervical or axillary lymphadenopathy noted. Carotids are 2+, JVD WNL LUNGS: Respiration seems nonlabored, no significant accessory muscle action noted. Breath sounds clear to auscultation bilaterally and equal noted. No wheezes rales or rhonchi noted. No significant dullness noted on percussion. CHEST: Palpation of the chest wall shows no significant chest wall tenderness. No other significant abnormalities noted. 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 ABDOMEN: Soft, no significant tenderness appreciated, normoactive bowel sounds. No guarding, no rebound. No rigidity noted . No masses appreciated. EXTREMITIES: Pedal pulses are 1-2+, no calf tenderness noted. No clubbing or cyanosis.trace to 1+ pedal edema noted NEUROLOGICAL: Focused neurological exam showed no significant neurologic deficit. Normal speech, no focal weakness appreciated. PSYCH: Normal mood, normal affect. Judgment and insight within normal limits. SKIN: No significant ecchymosis, rash, ulcerations or signs of pruritus noted. MUSCULOSKELETAL EXAM: No significant joint swelling noted. Results Laboratory Results: 08/03/17 06:05 08/03/17 06:05 08/03/17 06:00 Triglycerides 52 Cholesterol 162.48 LDL Cholesterol Direct 113 H VLDL Cholesterol 10.0 HDL Cholesterol 48 Impressions: Acute Abdomen Series 08/02/17 19:33 IMPRESSION: 1. NO RADIOGRAPHIC EVIDENCE FOR ACUTE ABDOMINAL DISEASE. 2. RIGHT PARATRACHEAL FULLNESS ON CHEST X-RAY. THIS MAY BE DUE TO VASCULAR STRUCTURES, SOFT TISSUE, OR ADENOPATHY. WOULD RECOMMEND CT OF THE CHEST TO EVALUATE. Abdomen/Pelvis CT 08/02/17 21:43 IMPRESSION: 1. Ileus/malabsorption pattern of the small and large bowel. Differential diagnosis includes low-grade obstruction. 2. Polycystic liver and kidney disease. Abdomen X-Ray 08/04/17 06:00 IMPRESSION: NO RADIOGRAPHIC EVIDENCE FOR ACUTE ABDOMINAL DISEASE. Assessment & Plan - Diagnosis (1) Preoperative cardiovascular examination Is this a current diagnosis for this admission?: Yes (2) Abnormal electrocardiogram Is this a current diagnosis for this admission?: Yes (3) Heart murmur Is this a current diagnosis for this admission?: Yes (4) Small bowel obstruction, partial Is this a current diagnosis for this admission?: Yes (5) polycystic kidney and liver Is this a current diagnosis for this admission?: Yes - Notes Notes: Patient cleared for surgery. No contraindications noted. Recommend DVT prophylaxis, pain control etc. however it seems patient may not need surgery as she is clinically better. Small bowel follow-through results are pending at this point. Abnormal electrocardiogram: Patient is noted to have left bundle branch block pattern on EKG. This is actually unchanged from before. Patient might benefit from a nuclear stress test, however can be done at a later date. Currently patient not demonstrating any symptoms indicative of ongoing ischemia. Heart murmur: In view of abnormal EKG, opted to do a 2D echo. The results came back satisfactory. Borderline enlargement of the right ventricle was noted. Small bowel obstruction: Patient being managed conservatively. Patient cleared for surgery if surgeons wishes to proceed. Polycystic kidney and liver disease: Currently stable. Have recommended that patient follow-up with me in the office for evaluation of abnormal EKG and also possible underlying sleep disorder. - Time Time with patient: Greater than 35 minutes - CODE STATUS was discussed, patient remains full code. Surrogate decision-maker unchanged. Multiple medical problems were addressed. More than 50% of the time spent coordinating care, discussing management plans with involved caregivers. Management plans discussed with involved personnels. Medical decision making was of moderate to high complexity, patient's has multiple comorbidities. Medications reviewed and adjusted accordingly: Yes
[2017-08-04] MEDS: Fingolimod Hcl [Gilenya] 0.5 MG Capsule PO SCH (12:45)
[2017-08-04] MEDS: VENLAFAXINE HCL 37.5 MG CAP.SR.24H PO SCH (12:45)
[2017-08-04] MEDS: METOPROLOL SUCCINATE 25 MG TAB.SR.24H PO SCH (12:45)
--- NOTE | 2017-08-04 13:40 | RADIOLOGY REPORT (SQ) ---
EXAM DESCRIPTION: SMALL BOWEL SERIES COMPLETED DATE/TIME: 08/04/2017 1:01 pm REASON FOR STUDY: small bowel obstruction COMPARISON: CT abdomen and pelvis 08/02/2017 FLUOROSCOPY TIME: 0.9 minutes of fluoroscopy was used 13 images saved to PACS. LIMITATIONS: None. PROCEDURE: Initial education professor image of abdomen acquired, followed by administration of Gastrografin. Ser ial radiographic images acquired. Fluoroscopic images recorded of the terminal ileum and other indic ated areas. All images stored on PACS. FINDINGS: REMOTE ADVISOR KUB: Non-obstructive bowel pattern. No abnormal calcifications. Surgical clips and sutures are seen along the midline and right upper quadrant. Soft tissue planes normal. STOMACH AND DUODENUM: No significant reflux. Fundus of the stomach is unremarkable. There is distor tion of the medial aspect of the antrum of the stomach including the duodenal bulb along the area of previous surgery. There appears to be tethering of the antrum of the stomach and duodenum. There is luminal narrowing of the 2nd portion the duodenum due to this tethering. Remainder the duodenum is unremarkable. JEJUNUM: Normal mucosal pattern. No dilatation, segmentation, strictures or masses. ILEUM: Normal mucosal pattern. No dilatation, segmentation, strictures or masses. TERMINAL ILEUM AND ILEO-CECAL VALVE: Normal mucosal pattern without "cobble-stoning" or stricture. N ormal compression. PROXIMAL COLON: Incompletely imaged. No abnormality. OTHER: Transit time is normal with contrast seen in the colon at 2-1/2 hours. IMPRESSION: 1. TETHERING OF THE ANTRUM OF THE STOMACH AND DUODENAL BULB ALONG UP OPERATIVE SITE IN THE MID UPPER ABDOMEN. THIS TETHERING DOES CAUSE MILD NARROWING OF THE 2ND PORTION THE DUODENUM. LA RGE AMOUNT CONTRAST IS STILL SEEN WITHIN THE STOMACH AT 2-1/2 HOURS. ENDOSCOPY MAY BE USEFUL IN FURT HER EVALUATION OF THIS AREA. 2. NORMAL SMALL BOWEL FOLLOW-THROUGH. NO EVIDENCE OF SMALL-BOWEL OBSTRUCTION. COMMENT: Quality ID [id number]: Final reports for procedures using fluoroscopy that document radiation exp osure indices, or exposure time and number of fluorographic images (if radiation exposure indices are not available) TECHNICAL DOCUMENTATION: JOB ID: [id number] [employer]- All Rights Reserved Reading location - IP/workstation name: [email or web address]
--- NOTE | 2017-08-04 20:22 | PDOC PROGRESS REPORT ---
Subjective Progress Note for:: 08/04/17 Subjective:: Hungry. no pains Reason For Visit: PARTIAL BOWEL OBSTRUCTION Physical Exam Vital Signs: Temp Pulse Resp BP Pulse Ox 98.5 F 70 16 146/76 H 100 08/04/17 15:58 08/04/17 15:58 08/04/17 15:58 08/04/17 15:58 08/04/17 15:58 Intake & Output 08/03/17 08/04/17 08/05/17 06:59 06:59 06:59 Intake Total 439 3226 1137 Output Total 0 Balance 439 3226 1137 Weight 68 kg 72.5 kg Exam: Abd soft and nontender. Just had gastrograffin swallow with SBFT. Showed narrowing at 2nd portion of duodenum but dye went through with some hold up. Results Laboratory Results: 08/03/17 06:05 08/03/17 06:05 Impressions: Acute Abdomen Series 08/02/17 19:33 IMPRESSION: 1. NO RADIOGRAPHIC EVIDENCE FOR ACUTE ABDOMINAL DISEASE. 2. RIGHT PARATRACHEAL FULLNESS ON CHEST X-RAY. THIS MAY BE DUE TO VASCULAR STRUCTURES, SOFT TISSUE, OR ADENOPATHY. WOULD RECOMMEND CT OF THE CHEST TO EVALUATE. Abdomen/Pelvis CT 08/02/17 21:43 IMPRESSION: 1. Ileus/malabsorption pattern of the small and large bowel. Differential diagnosis includes low-grade obstruction. 2. Polycystic liver and kidney disease. Small Bowel X-Ray 08/04/17 00:00 IMPRESSION: 1. TETHERING OF THE ANTRUM OF THE STOMACH AND DUODENAL BULB ALONG UP OPERATIVE SITE IN THE MID UPPER ABDOMEN. THIS TETHERING DOES CAUSE MILD NARROWING OF THE 2ND PORTION THE DUODENUM. LARGE AMOUNT CONTRAST IS STILL SEEN WITHIN THE STOMACH AT 2-1/2 HOURS. ENDOSCOPY MAY BE USEFUL IN FURTHER EVALUATION OF THIS AREA. 2. NORMAL SMALL BOWEL FOLLOW-THROUGH. NO EVIDENCE OF SMALL-BOWEL OBSTRUCTION. Abdomen X-Ray 08/04/17 06:00 IMPRESSION: NO RADIOGRAPHIC EVIDENCE FOR ACUTE ABDOMINAL DISEASE. Assessment & Plan - Diagnosis (1) Small bowel obstruction, partial Is this a current diagnosis for this admission?: Yes (2) polycystic kidney and liver Is this a current diagnosis for this admission?: Yes - Time Time Spent with patient: 15-24 minutes - Plan Summary Plan Summary: Start her on liquid diet. Had a long talk with pt and .They deny any peptic ulcer symptoms other than the partial bowel obstructions whchasity may be due to this narrowing in the duodenum.She will nwwd an upper endoscopy. They went to a Homoeopath in town in the past. We don't have an position clerk endoscopist(GI) at this time and i don't do endoscopy yet. We talked about getting in touch with her Drs at [place]. This is probably the best place to have this narrowing evaluated and treated. We'll see how she does with her diet this time and if she tolerates then she could probably see her drs at [place] on a semi elective basis.
[2017-08-05] MEDS: HYDROMORPHONE HCL INJ/PF 2 MG/ML AMPULE INJ PRN (01:55)
[2017-08-05] MEDS: ONDANSETRON HCL INJ/PF 4 MG/2 ML SDV IV PRN (02:03)
[2017-08-05] MEDS: NORMAL SALINE 1000 ML 1,000 ML IV PRN ×2 (08:07→17:55)
[2017-08-05] MEDS: Fingolimod Hcl [Gilenya] 0.5 MG Capsule PO SCH (09:12)
[2017-08-05] MEDS: METOPROLOL SUCCINATE 25 MG TAB.SR.24H PO SCH (09:12)
[2017-08-05] MEDS: VENLAFAXINE HCL 37.5 MG CAP.SR.24H PO SCH (09:12)
[2017-08-05] MEDS ORDERED: PANTOPRAZOLE SODIUM 40 MG VIAL IV ONE (12:30)
--- NOTE | 2017-08-05 14:39 | PDOC PROGRESS REPORT ---
Subjective Progress Note for:: 08/05/17 Subjective:: Patient seen on morning rounds. Small bowel follow-through report reviewed. No evidence of small bowel obstruction but possible duodenal stenosis. Patient claims to be doing better with improvement in abdominal pain and movement of bowels. Patient denying any chest pain as such. Reason For Visit: PARTIAL BOWEL OBSTRUCTION Physical Exam Vital Signs: Temp Pulse Resp BP Pulse Ox 98.9 F 65 12 112/59 L 98 08/05/17 11:39 08/05/17 11:39 08/05/17 11:39 08/05/17 11:39 08/05/17 11:39 Intake & Output 08/04/17 08/05/17 08/06/17 06:59 06:59 06:59 Intake Total 3226 3060 355 Balance 3226 3060 355 Weight 72.5 kg Exam: GENERAL: well-nourished and in no acute distress. Alert and oriented x3 HEAD: Atraumatic, normocephalic. EYES: Pupils equal round and reactive to light, extraocular movements intact, sclera anicteric, conjunctiva are normal. ENT: TMs normal, nares patent, oropharynx clear without exudates. Moist mucous membranes. No oral ulcerations or bleeding gums noted NECK: supple without lymphadenopathy. Trachea is central. No cervical or axillary lymphadenopathy noted. Carotids are 2+, JVD WNL LUNGS: Respiration seems nonlabored, no significant accessory muscle action noted. Breath sounds clear to auscultation bilaterally and equal noted. No wheezes rales or rhonchi noted. No significant dullness noted on percussion. CHEST: Palpation of the chest wall shows no significant chest wall tenderness. No other significant abnormalities noted. 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 ABDOMEN: Soft, no significant tenderness appreciated, normoactive bowel sounds. No guarding, no rebound. No rigidity noted . Enlargement of liver noted.. EXTREMITIES: Pedal pulses are 1-2+, no calf tenderness noted. No clubbing or cyanosis. Negative pedal edema noted NEUROLOGICAL: Focused neurological exam showed no significant neurologic deficit. Normal speech, no focal weakness appreciated. PSYCH: Normal mood, normal affect. Judgment and insight within normal limits. SKIN: No significant ecchymosis, rash, ulcerations or signs of pruritus noted. MUSCULOSKELETAL EXAM: No significant joint swelling noted. Results Laboratory Results: 08/03/17 06:05 08/03/17 06:05 EKG Comments: Shows sinus rhythm without sustained tacky or bradycardia arrhythmias. Impressions: Acute Abdomen Series 08/02/17 19:33 IMPRESSION: 1. NO RADIOGRAPHIC EVIDENCE FOR ACUTE ABDOMINAL DISEASE. 2. RIGHT PARATRACHEAL FULLNESS ON CHEST X-RAY. THIS MAY BE DUE TO VASCULAR STRUCTURES, SOFT TISSUE, OR ADENOPATHY. WOULD RECOMMEND CT OF THE CHEST TO EVALUATE. Abdomen/Pelvis CT 08/02/17 21:43 IMPRESSION: 1. Ileus/malabsorption pattern of the small and large bowel. Differential diagnosis includes low-grade obstruction. 2. Polycystic liver and kidney disease. Small Bowel X-Ray 08/04/17 00:00 IMPRESSION: 1. TETHERING OF THE ANTRUM OF THE STOMACH AND DUODENAL BULB ALONG UP OPERATIVE SITE IN THE MID UPPER ABDOMEN. THIS TETHERING DOES CAUSE MILD NARROWING OF THE 2ND PORTION THE DUODENUM. LARGE AMOUNT CONTRAST IS STILL SEEN WITHIN THE STOMACH AT 2-1/2 HOURS. ENDOSCOPY MAY BE USEFUL IN FURTHER EVALUATION OF THIS AREA. 2. NORMAL SMALL BOWEL FOLLOW-THROUGH. NO EVIDENCE OF SMALL-BOWEL OBSTRUCTION. Abdomen X-Ray 08/04/17 06:00 IMPRESSION: NO RADIOGRAPHIC EVIDENCE FOR ACUTE ABDOMINAL DISEASE. Assessment & Plan - Diagnosis (1) Preoperative cardiovascular examination Is this a current diagnosis for this admission?: Yes (2) Abnormal electrocardiogram Is this a current diagnosis for this admission?: Yes (3) Heart murmur Is this a current diagnosis for this admission?: Yes (4) Small bowel obstruction, partial Is this a current diagnosis for this admission?: Yes (5) polycystic kidney and liver Is this a current diagnosis for this admission?: Yes - Notes Notes: Patient cleared for surgery. No contraindications noted. Recommend DVT prophylaxis, pain control etc. however it seems patient may not need surgery as she is clinically better. 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 Have discussed this with surgeon. As per my recommendation, patient started on IV proton pump inhibitor by the surgeon. Hopefully this may improve emptying of the stomach. Abnormal electrocardiogram: Patient is noted to have left bundle branch block pattern on EKG. This is actually unchanged from before. Patient might benefit from a nuclear stress test, however can be done at a later date. Currently patient not demonstrating any symptoms indicative of ongoing ischemia. Heart murmur: In view of abnormal EKG, opted to do a 2D echo. The results came back satisfactory. Borderline enlargement of the right ventricle was noted. Small bowel obstruction: Patient being managed conservatively. Patient cleared for surgery if surgeons wishes to proceed. Polycystic kidney and liver disease: Currently stable. Have recommended that patient follow-up with me in the office for evaluation of abnormal EKG and also possible underlying sleep disorder. At this point will see patient on an as-needed basis. Please call me. Will consider repeating an EKG prior to discharge. Just to see if there are any evolving changes. - Time Time with patient: 15-25 minutes - CODE STATUS was discussed, patient remains full code. Surrogate decision-maker unchanged. Multiple medical problems were addressed. More than 50% of the time spent coordinating care, discussing management plans with involved caregivers. Management plans discussed with involved personnels. Medical decision making was of moderate to high complexity , patient's has multiple comorbidities. Medications reviewed and adjusted accordingly: Yes
[2017-08-06] MEDS: PANTOPRAZOLE SODIUM 40 MG VIAL IV SCH ×3 (00:12→22:07)
[2017-08-06] MEDS: HYDROMORPHONE HCL INJ/PF 2 MG/ML AMPULE INJ PRN ×4 (03:18→20:58)
[2017-08-06] MEDS: METOPROLOL SUCCINATE 25 MG TAB.SR.24H PO SCH (09:16)
[2017-08-06] MEDS: Fingolimod Hcl [Gilenya] 0.5 MG Capsule PO SCH (09:17)
[2017-08-06] MEDS: VENLAFAXINE HCL 37.5 MG CAP.SR.24H PO SCH (09:17)
[2017-08-06] MEDS: NORMAL SALINE 1000 ML 1,000 ML IV PRN ×2 (09:19→14:59)
--- NOTE | 2017-08-06 11:27 | PDOC PROGRESS REPORT ---
Subjective Progress Note for:: 08/05/17 Subjective:: tolerating clear liquids Reason For Visit: PARTIAL BOWEL OBSTRUCTION Physical Exam Vital Signs: Temp Pulse Resp BP Pulse Ox 98.0 F 61 12 133/80 H 100 08/06/17 07:51 08/06/17 07:51 08/06/17 07:51 08/06/17 07:51 08/06/17 07:51 Intake & Output 08/05/17 08/06/17 08/07/17 06:59 06:59 06:59 Intake Total 3060 3796 Balance 3060 3796 Weight 73.7 kg Exam: abd is soft and nontender.+flatus Results Laboratory Results: 08/03/17 06:05 08/03/17 06:05 Impressions: Acute Abdomen Series 08/02/17 19:33 IMPRESSION: 1. NO RADIOGRAPHIC EVIDENCE FOR ACUTE ABDOMINAL DISEASE. 2. RIGHT PARATRACHEAL FULLNESS ON CHEST X-RAY. THIS MAY BE DUE TO VASCULAR STRUCTURES, SOFT TISSUE, OR ADENOPATHY. WOULD RECOMMEND CT OF THE CHEST TO EVALUATE. Abdomen/Pelvis CT 08/02/17 21:43 IMPRESSION: 1. Ileus/malabsorption pattern of the small and large bowel. Differential diagnosis includes low-grade obstruction. 2. Polycystic liver and kidney disease. Small Bowel X-Ray 08/04/17 00:00 IMPRESSION: 1. TETHERING OF THE ANTRUM OF THE STOMACH AND DUODENAL BULB ALONG UP OPERATIVE SITE IN THE MID UPPER ABDOMEN. THIS TETHERING DOES CAUSE MILD NARROWING OF THE 2ND PORTION THE DUODENUM. LARGE AMOUNT CONTRAST IS STILL SEEN WITHIN THE STOMACH AT 2-1/2 HOURS. ENDOSCOPY MAY BE USEFUL IN FURTHER EVALUATION OF THIS AREA. 2. NORMAL SMALL BOWEL FOLLOW-THROUGH. NO EVIDENCE OF SMALL-BOWEL OBSTRUCTION. Abdomen X-Ray 08/04/17 06:00 IMPRESSION: NO RADIOGRAPHIC EVIDENCE FOR ACUTE ABDOMINAL DISEASE. Assessment & Plan - Diagnosis (1) Small bowel obstruction, partial Is this a current diagnosis for this admission?: Yes (2) polycystic kidney and liver Is this a current diagnosis for this admission?: Yes - Time Time Spent with patient: 15-24 minutes - Plan Summary Plan Summary: Increase diet to full liquids Will need an upper endoscopy. Will ask Dr Dempsey Monday.
[2017-08-07] MEDS: NORMAL SALINE 1000 ML 1,000 ML IV PRN ×2 (01:13→12:55)
--- NOTE | 2017-08-07 09:16 | EKG REPORT ---
SEVERITY:- ABNORMAL ECG - SINUS RHYTHM LEFT BUNDLE BRANCH BLOCK : Confirmed by: Christian Aguilera 07-Aug-2017 09:15:53
[2017-08-07] MEDS: PANTOPRAZOLE SODIUM 40 MG VIAL IV SCH ×2 (10:20→21:22)
[2017-08-07] MEDS: VENLAFAXINE HCL 37.5 MG CAP.SR.24H PO SCH (10:20)
[2017-08-07] MEDS: Fingolimod Hcl [Gilenya] 0.5 MG Capsule PO SCH (10:20)
[2017-08-07] MEDS: METOPROLOL SUCCINATE 25 MG TAB.SR.24H PO SCH (10:20)
[2017-08-07] MEDS ORDERED: ONDANSETRON HCL INJ/PF 4 MG/2 ML SDV ONE (13:29)
[2017-08-07] MEDS ORDERED: GLYCOPYRROLATE INJ 0.4 MG/2 ML VIAL ONE (13:29)
[2017-08-07] MEDS ORDERED: NALOXONE HCL INJ/PF 0.4 MG/1 ML SDV ONE (13:29)
[2017-08-07] MEDS ORDERED: FENTANYL CITRATE INJ/PF 100 MCG/2 ML AMPUL ONE (13:30)
[2017-08-07] MEDS ORDERED: MIDAZOLAM 2 MG/2 ML INJ ONE (13:30)
[2017-08-07] MEDS ORDERED: FLUMAZENIL INJ 0.5 MG/5 ML VIAL ONE (13:30)
[2017-08-07] MEDS ORDERED: GLUCAGON,HUMAN RECOMB 1 MG INJ ONE (13:31)
[2017-08-07] MEDS ORDERED: EPINEPHRINE INJ 1 MG/10 ML DISP.SYRIN ONE (13:31)
[2017-08-07] MEDS: MIDAZOLAM 2 MG/2 ML INJ ONE ×3 (14:50→14:55)
--- NOTE | 2017-08-07 16:49 | Operative Report ---
Operative Report DATE OF SURGERY: 08/07/17 PREOPERATIVE DIAGNOSIS: 1. Abdominal pain nausea and vomiting. 2. Rule out gastroduodenal pathology POSTOPERATIVE DIAGNOSIS: 1. Mild diffuse gastritis. 2. No endoscopic evidence of a significant gastro-duodenal pathology OPERATION: 1. Esophagogastroduodenoscopy. 2. Antral biopsies with cold forceps device SURGEON: MADONNA BURRIS ANESTHESIA: Moderate Sedation TISSUE REMOVED OR ALTERED: Gastric antral biopsy COMPLICATIONS: None ESTIMATED BLOOD LOSS: Scant INTRAOPERATIVE FINDINGS: The below PROCEDURE: The patient was taken from her hospital room to the endoscopy suite [facility] or monitoring devices were attached, she was placed in left lateral decubitus position. Oral mouthpiece inserted. Surgical plan surgical timeout conducted. The flexible adult upper endoscope was advanced to the patient oropharynx down the esophagus into the stomach. No evidence of retained gastric contents and only a minimal amount of bile. Stomach distended up with CO2 uneventfully. Was then able to readily pass gastroscope through the pylorus into the duodenum. Initially there appeared to be some curvature to the duodenal bulb, but once this area was intubated and I was able to advance the scope all the way to at least the second portion of the duodenum, I was able to visualize this entire area thoroughly. The duodenum second and first portions were normal. I was able to slowly bring back the scope through the gastroduodenal junction, the duodenal bulb as well as the pyloric channel ; there was no evidence of a tumor, stricture, or ulcer. The scope was brought back through into the body of the stomach. There was mild diffuse gastritis but no ulceration. A random biopsy of the gastric antrum was performed with the cold forceps device. Bleeding was minimal. Mucosal biopsy sent for FILIPE testing and histology. The scope was brought back to the GE junction. Z line was at approximately 37 cm from the incisor. There was no evidence of distal esophageal pathology. At this point felt the operation was complete. Scope was withdrawn the patient oropharynx she tolerated the procedure well. We will advance her diet as tolerated.
[2017-08-07] MEDS: HYDROMORPHONE HCL INJ/PF 2 MG/ML AMPULE INJ PRN (20:14)
[2017-08-08] MEDS: HYDROMORPHONE HCL INJ/PF 2 MG/ML AMPULE INJ PRN ×2 (00:41→07:57)
[2017-08-08] MEDS: NORMAL SALINE 1000 ML 1,000 ML IV PRN (00:45)
[2017-08-08] MEDS: Fingolimod Hcl [Gilenya] 0.5 MG Capsule PO SCH (10:05)
[2017-08-08] MEDS: METOPROLOL SUCCINATE 25 MG TAB.SR.24H PO SCH (10:05)
[2017-08-08] MEDS: VENLAFAXINE HCL 37.5 MG CAP.SR.24H PO SCH (10:05)
[2017-08-08] MEDS ORDERED: METOCLOPRAMIDE HCL INJ/PF 10 MG/2 ML SDV IV ONE (18:30)
[2017-08-08 18:48] VITALS: BP 151/94
--- NOTE | 2017-08-08 18:56 | PDOC PROGRESS REPORT ---
Subjective Progress Note for:: 08/08/17 Subjective:: I was asked to see patient again because patient is being placed on metoclopramide or Reglan and to clear patient for such medication start. Patient on questioning denied any chest pains she denied any shortness of breath. Patient was noted to have abdominal bloating after lunch. Patient had endoscopy yesterday which showed gastritis. Biopsy results are pending. Reason For Visit: PARTIAL BOWEL OBSTRUCTION Physical Exam Vital Signs: Temp Pulse Resp BP Pulse Ox 98.3 F 74 18 145/93 H 99 08/08/17 18:35 08/08/17 18:35 08/08/17 18:35 08/08/17 18:35 08/08/17 18:35 Intake & Output 08/07/17 08/08/17 08/09/17 06:59 06:59 06:59 Intake Total 4788 3868 859 Balance 4788 3868 859 Weight 75.2 kg Exam: GENERAL: well-nourished and in no acute distress. Alert and oriented x3 HEAD: Atraumatic, normocephalic. EYES: Pupils equal round and reactive to light, extraocular movements intact, sclera anicteric, conjunctiva are normal. ENT: TMs normal, nares patent, oropharynx clear without exudates. Moist mucous membranes. No oral ulcerations or bleeding gums noted NECK: supple without lymphadenopathy. Trachea is central. No cervical or axillary lymphadenopathy noted. Carotids are 2+, JVD WNL LUNGS: Respiration seems nonlabored, no significant accessory muscle action noted. Breath sounds clear to auscultation bilaterally and equal noted. No wheezes rales or rhonchi noted. No significant dullness noted on percussion. CHEST: Palpation of the chest wall shows no significant chest wall tenderness. No other significant abnormalities noted. 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 ABDOMEN: Soft, no significant tenderness appreciated, normoactive bowel sounds. No guarding, no rebound. No rigidity noted . No masses appreciated. Liver enlargement is noted. EXTREMITIES: Pedal pulses are 1-2+, no calf tenderness noted. No clubbing or cyanosis.t negative + pedal edema noted NEUROLOGICAL: Focused neurological exam showed no significant neurologic deficit. Normal speech, no focal weakness appreciated. PSYCH: Normal mood, normal affect. Judgment and insight within normal limits. SKIN: No significant ecchymosis, skin is noted to be warm. MUSCULOSKELETAL EXAM: No significant acute joint swelling noted. Results Laboratory Results: 08/03/17 06:05 08/03/17 06:05 EKG Comments: Telemetry strips shows sinus rhythm without any sustained tacky or bradycardia arrhythmias. Impressions: Acute Abdomen Series 08/02/17 19:33 IMPRESSION: 1. NO RADIOGRAPHIC EVIDENCE FOR ACUTE ABDOMINAL DISEASE. 2. RIGHT PARATRACHEAL FULLNESS ON CHEST X-RAY. THIS MAY BE DUE TO VASCULAR STRUCTURES, SOFT TISSUE, OR ADENOPATHY. WOULD RECOMMEND CT OF THE CHEST TO EVALUATE. Abdomen/Pelvis CT 08/02/17 21:43 IMPRESSION: 1. Ileus/malabsorption pattern of the small and large bowel. Differential diagnosis includes low-grade obstruction. 2. Polycystic liver and kidney disease. Small Bowel X-Ray 08/04/17 00:00 IMPRESSION: 1. TETHERING OF THE ANTRUM OF THE STOMACH AND DUODENAL BULB ALONG UP OPERATIVE SITE IN THE MID UPPER ABDOMEN. THIS TETHERING DOES CAUSE MILD NARROWING OF THE 2ND PORTION THE DUODENUM. LARGE AMOUNT CONTRAST IS STILL SEEN WITHIN THE STOMACH AT 2-1/2 HOURS. ENDOSCOPY MAY BE USEFUL IN FURTHER EVALUATION OF THIS AREA. 2. NORMAL SMALL BOWEL FOLLOW-THROUGH. NO EVIDENCE OF SMALL-BOWEL OBSTRUCTION. Abdomen X-Ray 08/04/17 06:00 IMPRESSION: NO RADIOGRAPHIC EVIDENCE FOR ACUTE ABDOMINAL DISEASE. Assessment & Plan - Diagnosis (1) Preoperative cardiovascular examination Is this a current diagnosis for this admission?: Yes (2) Abnormal electrocardiogram Is this a current diagnosis for this admission?: Yes (3) Heart murmur Is this a current diagnosis for this admission?: Yes (4) Small bowel obstruction, partial Is this a current diagnosis for this admission?: Yes (5) polycystic kidney and liver Is this a current diagnosis for this admission?: Yes - Notes Notes: Metoclopramide/Reglan therapy: I believe patient has a normal LVEF therefore should be able to tolerate that. However because of baseline abnormal EKG, will recommend cardiac monitoring and low-dose Reglan therapy at this point. Would also recommend that proton pump inhibitor be continued. Patient should follow-up with me in the office and possibly get a event monitor and further cardiac workup. We will repeat an EKG in the morning for QTC prolongation if any. - Time Time with patient: 15-25 minutes - CODE STATUS was discussed, patient remains full code. Surrogate decision-maker unchanged. Multiple medical problems were addressed. More than 50% of the time spent coordinating care, discussing management plans with involved caregivers. Management plans discussed with involved personnels. Medical decision making was of moderate to high complexity , patient's has multiple comorbidities. Medications reviewed and adjusted accordingly: Yes
[2017-08-08 19:43] LABS: ANION GAP 8 (5-19); BLOOD UREA NITROGEN 11 mg/dL (7-20); CALCIUM 9.8 mg/dL (8.4-10.2); CARBON DIOXIDE 26 mmol/L (22-30); CHLORIDE 106 mmol/L (98-107); GLUCOSE 85 mg/dL (75-110); POTASSIUM 4.7 mmol/L (3.6-5.0); SODIUM 139.5 mmol/L (137-145)
--- NOTE | 2017-08-08 20:49 | RADIOLOGY REPORT (SQ) ---
EXAM DESCRIPTION: CT CHEST WITHOUT COMPLETED DATE/TIME: 08/08/2017 7:58 pm REASON FOR STUDY: Right Paratracheal fullness COMPARISON: Chest x-ray dated 08/02/2017. TECHNIQUE: CT scan performed of the chest without intravenous contrast. Images reviewed with lung, soft tissue and bone windows. Reconstructed coronal and sagittal MPR images reviewed. All images st ored on PACS. All CT scanners at this facility use dose modulation, iterative reconstruction, and/or weight based d osing when appropriate to reduce radiation dose to as low as reasonably achievable (ALARA). [facility]: Dose Right [facility]: CareDose [facility]: Dose Right [facility]: Teradose 4D [facility]: Smart HeyStaks RADIATION DOSE: CT Rad equipment meets quality standard of care and radiation dose reduction techniq ues were employed. CTDIvol: 5.8 mGy. DLP: 227 mGy-cm. mGy. LIMITATIONS: No technical limitations. FINDINGS: LUNGS AND PLEURA: No masses, infiltrates, pneumothorax. No pleural effusions, calcificati ons. HILAR AND MEDIASTINAL STRUCTURES: There is a fluid filled cystic lesion on the right side of the tra fili extending from the upper thorax to the mercy. Transverse measurement 3.8 cm, AP measurement 5. 8 cm, and craniocaudal measurement 7 cm. Hounsfield units of approximately 0, consistent with fluid. No abnormal nodes. No obvious aneurysm. HEART AND VASCULAR STRUCTURES: No aneurysm. No pericardial effusion. UPPER ABDOMEN: Multiple hepatic and renal cysts. . Limited exam. THYROID AND OTHER SOFT TISSUES: No masses. No adenopathy. BONES: No significant finding. HARDWARE: None in the chest. OTHER: No other significant findings. IMPRESSION: 1. FLUID-FILLED CYSTIC LESION ON THE RIGHT SIDE OF THE TRACHEA. FAIRLY LARGE DIFFERENTIAL TO INCLUDE BRONCHOGENIC CYST, ESOPHAGEAL DUPLICATION CYST, THYMIC CYST, OR LYMPHANGIOMA. 2. MULTIPLE HEPATIC AND RENAL CYSTS CONSISTENT WITH POLYCYSTIC KIDNEY DISEASE. TECHNICAL DOCUMENTATION: JOB ID: [id number] Quality ID # [id number]: Final reports with documentation of one or more dose reduction techniques (e.g., Au tomated exposure control, adjustment of the mA and/or kV according to patient size, use of iterative reconstruction technique) 2010 [employer]- All Rights Reserved Reading location - IP/workstation name: [email or web address]
--- NOTE | 2017-08-09 08:34 | PDOC DISCHARGE SUMMARY ---
General - Admit/Disc Date/PCP Admission Date/Primary Care Provider: 08/03/17 00:47 RICHMOND MORRIS MD Discharge Date: 08/08/17 - Discharge Diagnosis (1) Small bowel obstruction, partial Is this a current diagnosis for this admission?: Yes (2) polycystic kidney and liver Is this a current diagnosis for this admission?: Yes (3) Decreased motility of stomach Is this a current diagnosis for this admission?: Yes (4) Gastritis Is this a current diagnosis for this admission?: Yes - Additional Information Resuscitation Status: Full Code Discharge Diet: As Tolerated Discharge Activity: Activity As Tolerated Home Medications: Dextroamphetamine/Amphetamine [Adderall XR 25 mg Capsule] 1 cap.sr PO DAILY 06/22 Fingolimod HCl [Gilenya] 0.5 mg PO DAILY 08/03/17 Metoprolol Succinate [Toprol Xl 25 mg Tab.sr] 25 mg PO DAILY 08/03/17 Venlafaxine HCl ER [Effexor Xr 37.5 mg Cap.sr] 37.5 mg PO DAILY 08/03/17 History of Present Illness Patient complains of: Abdominal pains with N/V History of Present Illness: Had partial resection of left lobe of liver since partially obstructing the stomach and cholecystectomy at [place] about a year ago. Has polycystic liver and kidneys. Had 3 other episodes of transient small bowel obstruction the latest is this admission. Had gastrograffin swallow which showed stenosis at the duodenum with gastric retention. She then underwent upper endoscopy on 08/07/17 which just showed mild gastritis. She was then able to eat with mild nausea for lunch. She was able to eat dinner with a dose of metoclopramide. She was then discharged on 08/08/17 with Dx of gastric motility problem,gastritis. Hospital Course Hospital Course: See HPI. Patient was admitted for ith an NGT. Symptoms subsided but again developed N/V. A gastrograffin swallow with. SBFT showed narrowing at 2nd portion of duodenum. She was able to tolerate full liquid afterwards and eventually underwent upper endoscopy by Dr Dempsey. This showed a mild gastritis. She was then discharged on Metochlopramide 5mgs TID , Prevacid 30 mgs BID. She has an appointment with a director compensation in [place]. She was able to tolerate reg diet on discharge Physical Exam Vital Signs: Temp Pulse Resp BP Pulse Ox 98.3 F 74 18 145/93 H 99 08/08/17 18:35 08/08/17 18:35 08/08/17 18:35 08/08/17 18:35 08/08/17 18:35 Intake & Output 08/08/17 08/09/17 08/10/17 06:59 06:59 06:59 Intake Total 3868 859 Balance 3868 859 General appearance: PRESENT: no acute distress Exam: Abd is soft and nontender GI/Abdominal exam: PRESENT: distended - mild distention but nontender. This was after dinner. No nausea., soft Rectal exam: PRESENT: deferred Extremities exam: PRESENT: full ROM Musculoskeletal exam: PRESENT: ambulatory Neurological exam: PRESENT: alert, oriented to person, oriented to place, oriented to time, oriented to situation Psychiatric exam: PRESENT: appropriate affect Skin exam: PRESENT: normal color, warm Results Laboratory Results: 08/03/17 06:05 08/08/17 19:12 08/08/17 19:12 Sodium 139.5 Potassium 4.7 Chloride 106 Carbon Dioxide 26 Anion Gap 8 BUN 11 Creatinine 0.97 Est GFR ( Amer) > 60 Est GFR (Non-Af Amer) > 60 Glucose 85 Calcium 9.8 Impressions: Acute Abdomen Series 08/02/17 19:33 IMPRESSION: 1. NO RADIOGRAPHIC EVIDENCE FOR ACUTE ABDOMINAL DISEASE. 2. RIGHT PARATRACHEAL FULLNESS ON CHEST X-RAY. THIS MAY BE DUE TO VASCULAR STRUCTURES, SOFT TISSUE, OR ADENOPATHY. WOULD RECOMMEND CT OF THE CHEST TO EVALUATE. Abdomen/Pelvis CT 08/02/17 21:43 IMPRESSION: 1. Ileus/malabsorption pattern of the small and large bowel. Differential diagnosis includes low-grade obstruction. 2. Polycystic liver and kidney disease. Small Bowel X-Ray 08/04/17 00:00 IMPRESSION: 1. TETHERING OF THE ANTRUM OF THE STOMACH AND DUODENAL BULB ALONG UP OPERATIVE SITE IN THE MID UPPER ABDOMEN. THIS TETHERING DOES CAUSE MILD NARROWING OF THE 2ND PORTION THE DUODENUM. LARGE AMOUNT CONTRAST IS STILL SEEN WITHIN THE STOMACH AT 2-1/2 HOURS. ENDOSCOPY MAY BE USEFUL IN FURTHER EVALUATION OF THIS AREA. 2. NORMAL SMALL BOWEL FOLLOW-THROUGH. NO EVIDENCE OF SMALL-BOWEL OBSTRUCTION. Abdomen X-Ray 08/04/17 06:00 IMPRESSION: NO RADIOGRAPHIC EVIDENCE FOR ACUTE ABDOMINAL DISEASE. Chest CT 08/08/17 00:00 IMPRESSION: 1. FLUID-FILLED CYSTIC LESION ON THE RIGHT SIDE OF THE TRACHEA. FAIRLY LARGE DIFFERENTIAL TO INCLUDE BRONCHOGENIC CYST, ESOPHAGEAL DUPLICATION CYST, THYMIC CYST, OR LYMPHANGIOMA. 2. MULTIPLE HEPATIC AND RENAL CYSTS CONSISTENT WITH POLYCYSTIC KIDNEY DISEASE. Qualifiers - * PATEINT BEING DISCHARGED WITH ANY OF THE FOLLOWING DIAGNOSIS?: No VTE patient discharged on overlapping Therapy?: No Reason(s) for not prescribing Overlap Therapy:: Not indicated Reason(s) for not prescribing Anti-thrombolytic therapy:: Not indicated Reason(s) for not prescribing Anti-coagulation therapy:: Not indicated Reason(s) for not prescribing Statins therapy:: Not indicated Reason(s) for not prescribing Aspirin therapy:: Not indicated Plan Discharge Plan: Continue Prevacid 30 mgs BID Metoclopramide 5 mgs po TID Has appointment with GI in [place] 08/14/17 Time Spent: Greater than 30 Minutes - She had a CT scan of chest just prior to discharge which showed likely a large cyst on the right paratracheal region.
== END 2017-08-08 20:18 | disposition home or self-care (01) | DRG 389 ==
LOC: ER 19:11 → EH 08-03 00:47 → 3W 08-03 03:36
PROVIDERS: ADMIT Surgery; ATTEND Surgery
PROC: 0D9670Z Drainage of Stomach with Drainage Device, Via Natural or Artificial Opening (ICD-10-PCS; 2017-08-03)
PROC: 0DB78ZX Excision of Stomach, Pylorus, Via Natural or Artificial Opening Endoscopic, Diagnostic (ICD-10-PCS; principal; 2017-08-07 13:30)
DX: K56.600 Partial intestinal obstruction, unspecified as to cause (principal); Q61.3 Polycystic kidney, unspecified; Q44.6 Cystic disease of liver; G35 Multiple sclerosis; K29.70 Gastritis, unspecified, without bleeding; I10 Essential (primary) hypertension; Z90.49 Acquired absence of other specified parts of digestive tract; Z90.89 Acquired absence of other organs; Z84.1 Family history of disorders of kidney and ureter; Z87.891 Personal history of nicotine dependence; Z82.49 Family history of ischemic heart disease and other diseases of the circulatory system
CPT/HCPCS: 36415; 43239; 71250; 74019; 74022; 74177; 74250; 80048; 80053; 80061; 81001; 83690; 85025; 88305; 93005; 93010; 93306; 96361; 96374; 96375; 99291; J0171; J1170; J1610; J2250; J2310; J2405; J2765; J3010; J3490; J7030; S0164

== ENCOUNTER → 2017-08-25 | Outpatient (CLI) | payer BC ==
[2017-08-25 09:51] LABS: HEMOGLOBIN 13.9 g/dL (12.0-15.5); MEAN CORPUSCULAR HEMOGLOBIN 26.3 pg (27.0-33.4); MEAN CORPUSCULAR HGB CONC 32.2 g/dL (32.0-36.0); MEAN CORPUSCULAR VOLUME 82 fl (80-97); PLATELET COUNT 176 10^3/uL (150-450); RED BLOOD COUNT 5.27 10^6/uL (3.72-5.28); RED CELL DISTRIBUTION WIDTH 16.4 % (11.5-14.0); WHITE BLOOD COUNT 3.8 10^3/uL (4.0-10.5)
[2017-08-25 09:59] LABS: APPEARANCE,URINE CLEAR; BILIRUBIN,URINE NEGATIVE (NEGATIVE); COLOR,URINE YELLOW; GLUCOSE, URINE NEGATIVE (NEGATIVE); KETONES,URINE NEGATIVE (NEGATIVE); LEUKOCYTE ESTERASE,URINE TRACE (NEGATIVE); NITRITE,URINE NEGATIVE (NEGATIVE); PROTEIN,URINE NEGATIVE (NEGATIVE); UROBILINOGEN,URINE NEGATIVE mg/dL (<2.0)
[2017-08-25 10:18] LABS: ANION GAP 10 (5-19); BLOOD UREA NITROGEN 27 mg/dL (7-20); CALCIUM 9.9 mg/dL (8.4-10.2); CARBON DIOXIDE 27 mmol/L (22-30); CHLORIDE 104 mmol/L (98-107); GLUCOSE 63 mg/dL (75-110); POTASSIUM 4.8 mmol/L (3.6-5.0); SODIUM 140.9 mmol/L (137-145)
== END ==
LOC: OD 08:30
PROVIDERS: ATTEND Internal Medicine Nephrology
DX: I10 Essential (primary) hypertension (principal); G35 Multiple sclerosis; Q61.2 Polycystic kidney, adult type
CPT/HCPCS: 36415; 80048; 81001; 85027

== ENCOUNTER 2019-02-17 17:44 | Emergency (ER) | payer BC ==
[2019-02-17] MEDS ORDERED: ONDANSETRON 4 MG TAB.RAPDIS PO ONE (18:18)
[2019-02-17] MEDS ORDERED: OXYCODONE-ACETAMINOPHEN 5-325 MG TABLET PO ONE (18:18)
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
[2019-02-17] MEDS ORDERED: HYDROCODONE/ACETAMINOPHEN 5-325 MG (6 TAB/ER DISP) PO PRN (19:22)
[2019-02-17 19:45] VITALS: BP 148/98
== END 2019-02-17 19:46 | disposition home or self-care (01) ==
LOC: ER 17:44
DX: S93.402A Sprain of unspecified ligament of left ankle, initial encounter (principal); S93.602A Unspecified sprain of left foot, initial encounter; M79.672 Pain in left foot; V91.83XA Other injury due to other accident to other powered watercraft, initial encounter; I10 Essential (primary) hypertension
CPT/HCPCS: 73610; 73630; S0119; 99283